=== PATIENT | male | born 1965 | race African-American/Black ===

== ENCOUNTER 2017-02-12 17:22 | Inpatient (IN) | payer OTHER, MEDICAID ==
[~2017-02-12] VITALS: Ht 175.3 cm; Wt 74.8 kg
[~2017-02-12 17:22] MED LIST: METF500T4 PO
[2017-02-12] MEDS ORDERED: LACTATED RINGERS 1,000 ML IV SCH ×2 (18:00)
[2017-02-12] MEDS ORDERED: VANCOMYCIN 1 G PREMIX 200 ML IV SCH ×2 (18:15→22:15)
[2017-02-12] MEDS ORDERED: METRONIDAZOLE 500 MG PREMIX 100 ML IV ONE (18:15)
[2017-02-12] MEDS ORDERED: AZTREONAM 2 GM in DEXT 5% WATER 100 ML IV SCH ×2 (18:15→19:45)
[2017-02-12 18:22] LABS: CHLORIDE 95 mEq/L (98-107)
[2017-02-12 18:23] LABS: INR 0.9; PROTHROMBIN TIME 9.9 sec (9.4-11.6)
[2017-02-12 18:25] LABS: CARBON DIOXIDE 27 mEq/L (21-32)
[2017-02-12 18:26] LABS: BASOPHILS % 0.3 % (0.0-2.0); EOSINOPHILS % 0.3 % (0.0-5.0); HEMATOCRIT. 37.4 % (42.0-52.0); HEMOGLOBIN. 12.3 g/dL (14.0-18.0); LYMPHOCYTES % 13.5 % (20.0-50.0); MEAN CORPUSCULAR HEMOGLOBIN 28.7 pg (28.0-32.0); MEAN CORPUSCULAR VOLUME 87.3 fL (80.0-94.0); MONOCYTES % 4.8 % (2.0-8.0); NEUTROPHILS % 81.1 % (40.0-76.0); PLATELET 362 x1000/uL (130-400); RED BLOOD CELL COUNT 4.29 mill/uL (4.7-6.1); RED CELL DISTRIBUTION WIDTH 14.4 % (11.6-14.6)
[2017-02-12 19:21] LABS: BG BASE EXCESS -2.5 mmol/L (-2.0-2.0); BG CARBOXYHEMOGLOBIN 1.3 % (0.5-1.5); BG DEOXYHEMOGLOBIN 3.8 % (0.0-5.0); BG FRACTION INSPIRED OXYGEN 21; BG HCO3 ACT 21.3 mmol/L (22.0-26.0); BG METHEMOGLOBIN 0.2 % (0.0-1.5); BG OXYGEN SATURATION 96.1 % (92.0-98.5); BG OXYHEMOGLOBIN 94.7 % (94.0-97.0); BG PCO2 33.7 mmHg (35.0-45.0); BG PH 7.419 (7.350-7.450); BG PO2 81.2 mmHg (75.0-100.0); BG SAMPLE SITE RIGHT BRACHIAL; BG TOTAL HEMOGLOBIN 12.1 g/dL (12.0-18.0); BG VENT MODE ROOM AIR
[2017-02-12] MEDS ORDERED: ONDANSETRON HCL 4MG/2ML VIAL IV ONE (19:45)
[2017-02-12] MEDS ORDERED: MORPHINE SULFATE 4 MG/ML CPJ (NOT FOR IM USE) IV ONE (19:45)
[2017-02-12] MEDS ORDERED: INSULIN DETEMIR UD 100 UNITS/ML SYR SUBCUT SCH (22:00)
[2017-02-12] MEDS ORDERED: CLONIDINE 0.1MG TABLET PO PRN (22:15)
[2017-02-12] MEDS ORDERED: ACETAMINOPHEN 325MG TABLET PO PRN (22:15)
[2017-02-12] MEDS ORDERED: DEXTROSE 50% WATER 50ML SYRINGE IV PRN (22:15)
[2017-02-12] MEDS ORDERED: ONDANSETRON HCL 4MG/2ML VIAL IV PRN (22:15)
[2017-02-12] MEDS ORDERED: MAGNESIUM/ALUMINUM HYDROXIDE/SIMETHICONE 30ML UDC PO PRN (22:15)
[2017-02-13] VITALS: BP 125/80
[2017-02-13] MEDS ORDERED: ASPI-1159 PO (01:24)
[2017-02-13] MEDS ORDERED: PLAVIX PO (01:24)
[2017-02-13] MEDS ORDERED: NOVOLOG SUBCUT (01:24)
[2017-02-13] MEDS ORDERED: LEVEMIR SUBCUT (01:24)
[2017-02-13] MEDS ORDERED: LEVOFLOXACIN 500MG PREMIX 100 ML IV SCH (02:00)
[2017-02-13 04:00] VITALS: BP 129/85
[2017-02-13] MEDS: HYDROCODONE/ACETAMINOPHEN 5/325MG TABLET PO PRN ×5 (05:52→21:00)
[2017-02-13] MEDS ORDERED: HYDROCODONE/ACETAMINOPHEN 5/325MG TABLET ONE (05:55)
[2017-02-13] MEDS: BLOOD SUGAR DIAGNOSTIC STRIP TEST SCH ×4 (06:33→21:43)
[2017-02-13] MEDS: SODIUM CHLORIDE 0.9% INJ 3ML FLUSH IVF SCH ×3 (06:35→20:58)
[2017-02-13] MEDS: INSULIN LISPRO 100 UNITS/ML SUBCUT SCH ×4 (06:36→21:50)
[2017-02-13 08:00] VITALS: BP 106/73
[2017-02-13] MEDS: VANCOMYCIN 1250MG in DEXTROSE 5% WATER 250ML IV SCH ×2 (08:18→20:58)
[2017-02-13] MEDS: ASPIRIN 81MG EC TABLET PO SCH (08:18)
[2017-02-13] MEDS: CLOPIDOGREL 75MG TABLET PO SCH (08:19)
[2017-02-13 11:41] VITALS: BP 101/71
[2017-02-13 15:55] VITALS: BP 94/61
[2017-02-13] MEDS ORDERED: CEFTRIAXONE 1 G PREMIX 50 ML IV SCH (16:30)
[2017-02-13 19:58] VITALS: BP 107/76
[2017-02-13] MEDS ORDERED: INSULIN DETEMIR UD 100 UNITS/ML SYR SUBCUT SCH (22:00)
[2017-02-13] MEDS ORDERED: INSULIN DETEMIR UD 100 UNITS/ML SYR SUBCUT NR (23:00)
[2017-02-14] VITALS: BP 124/87
[2017-02-14] MEDS: HYDROCODONE/ACETAMINOPHEN 5/325MG TABLET PO PRN ×5 (03:31→20:51)
[2017-02-14 04:00] VITALS: BP 127/88
[2017-02-14] MEDS: BLOOD SUGAR DIAGNOSTIC STRIP TEST SCH ×4 (06:36→21:00)
[2017-02-14] MEDS: SODIUM CHLORIDE 0.9% INJ 3ML FLUSH IVF SCH ×3 (06:46→22:34)
[2017-02-14] MEDS: INSULIN LISPRO 100 UNITS/ML SUBCUT SCH ×4 (06:47→22:34)
[2017-02-14 07:52] VITALS: BP 114/81
[2017-02-14 07:55] LABS: CARBON DIOXIDE 26 mEq/L (21-32); CHLORIDE 102 mEq/L (98-107)
[2017-02-14 07:57] LABS: BASOPHILS % 0.4 % (0.0-2.0); EOSINOPHILS % 0.9 % (0.0-5.0); HEMATOCRIT. 32.8 % (42.0-52.0); HEMOGLOBIN. 10.9 g/dL (14.0-18.0); LYMPHOCYTES % 19.1 % (20.0-50.0); MEAN CORPUSCULAR HEMOGLOBIN 28.3 pg (28.0-32.0); MEAN CORPUSCULAR VOLUME 85.5 fL (80.0-94.0); MEAN PLATELET VOLUME 8.2 fl (7.4-10.4); MONOCYTES % 8.3 % (2.0-8.0); NEUTROPHILS % 71.3 % (40.0-76.0); PLATELET 333 x1000/uL (130-400); RED BLOOD CELL COUNT 3.84 mill/uL (4.7-6.1); RED CELL DISTRIBUTION WIDTH 14.4 % (11.6-14.6)
[2017-02-14] MEDS: VANCOMYCIN 1250MG in DEXTROSE 5% WATER 250ML IV SCH (08:39)
[2017-02-14] MEDS: ASPIRIN 81MG EC TABLET PO SCH (08:39)
[2017-02-14] MEDS: CLOPIDOGREL 75MG TABLET PO SCH (08:39)
[2017-02-14 12:00] VITALS: BP 101/72
[2017-02-14 16:00] VITALS: BP 100/64
[2017-02-14] MEDS: CEFTRIAXONE 1 G PREMIX 50 ML IV SCH (16:30)
[2017-02-14] MEDS: VANCOMYCIN 1500MG in DEXTROSE 5% WATER 250ML IV SCH (20:06)
[2017-02-14 20:35] VITALS: BP 96/66
[2017-02-14] MEDS: INSULIN DETEMIR UD 100 UNITS/ML SYR SUBCUT SCH (22:34)
[2017-02-15 00:49] VITALS: BP 96/53
[2017-02-15] MEDS: HYDROCODONE/ACETAMINOPHEN 5/325MG TABLET PO PRN ×5 (01:26→19:50)
[2017-02-15] MEDS: SODIUM CHLORIDE 0.9% INJ 3ML FLUSH IVF SCH ×3 (01:31→21:54)
[2017-02-15] MEDS: VANCOMYCIN 1500MG in DEXTROSE 5% WATER 250ML IV SCH ×2 (01:31→08:22)
[2017-02-15 04:58] VITALS: BP 108/72
[2017-02-15] MEDS: BLOOD SUGAR DIAGNOSTIC STRIP TEST SCH ×4 (05:42→21:49)
[2017-02-15] MEDS: INSULIN LISPRO 100 UNITS/ML SUBCUT SCH ×4 (05:56→21:50)
[2017-02-15] MEDS: CLOPIDOGREL 75MG TABLET PO SCH (08:21)
[2017-02-15] MEDS: ASPIRIN 81MG EC TABLET PO SCH (08:21)
[2017-02-15 08:31] VITALS: BP 118/78
[2017-02-15] MEDS: CEFTRIAXONE 1 G PREMIX 50 ML IV SCH (15:39)
[2017-02-15] MEDS ORDERED: HYDROCODONE/ACETAMINOPHEN 5/325MG TABLET ONE (15:42)
[2017-02-15 17:23] VITALS: BP 109/74
[2017-02-15 20:00] VITALS: BP 138/91
[2017-02-15] MEDS: VANCOMYCIN 1 G PREMIX 200 ML IV SCH (21:52)
[2017-02-15] MEDS: INSULIN DETEMIR UD 100 UNITS/ML SYR SUBCUT SCH (21:57)
[2017-02-16] VITALS: BP 140/90
[2017-02-16] MEDS: HYDROCODONE/ACETAMINOPHEN 5/325MG TABLET PO PRN ×5 (00:34→21:21)
[2017-02-16 04:00] VITALS: BP 115/73
[2017-02-16] MEDS: VANCOMYCIN 1 G PREMIX 200 ML IV SCH ×3 (05:45→22:38)
[2017-02-16] MEDS: BLOOD SUGAR DIAGNOSTIC STRIP TEST SCH ×4 (06:19→20:28)
[2017-02-16] MEDS: SODIUM CHLORIDE 0.9% INJ 3ML FLUSH IVF SCH ×3 (06:19→22:38)
[2017-02-16] MEDS: INSULIN LISPRO 100 UNITS/ML SUBCUT SCH ×4 (06:20→21:23)
[2017-02-16 08:00] VITALS: BP 121/87
[2017-02-16] MEDS: CLOPIDOGREL 75MG TABLET PO SCH (08:51)
[2017-02-16] MEDS: ASPIRIN 81MG EC TABLET PO SCH (08:51)
[2017-02-16 12:00] VITALS: BP 116/77
[2017-02-16] MEDS: CEFTRIAXONE 1 G PREMIX 50 ML IV SCH (15:36)
[2017-02-16 16:00] VITALS: BP 117/77
[2017-02-16 20:00] VITALS: BP 93/61
[2017-02-16] MEDS: INSULIN DETEMIR UD 100 UNITS/ML SYR SUBCUT SCH (21:23)
[2017-02-17] VITALS: BP 112/71
[2017-02-17] MEDS: HYDROCODONE/ACETAMINOPHEN 5/325MG TABLET PO PRN ×5 (01:21→22:22)
[2017-02-17 04:00] VITALS: BP_SYST 132; BP_SYST 136; BP_DIAS 90; BP_DIAS 96
[2017-02-17 04:26] LABS: CARBON DIOXIDE 27 mEq/L (21-32); CHLORIDE 101 mEq/L (98-107); VANCOMYCIN TROUGH 24.9 ug/mL (5.0-10.0)
[2017-02-17 04:45] LABS: EOSINOPHILS % 2.1 % (0.0-5.0); HEMATOCRIT. 33.5 % (42.0-52.0); HEMOGLOBIN. 11.2 g/dL (14.0-18.0); LYMPHOCYTES % 29.9 % (20.0-50.0); MEAN CORPUSCULAR HEMOGLOBIN 28.7 pg (28.0-32.0); MEAN PLATELET VOLUME 7.6 fl (7.4-10.4); MONOCYTES % 10.1 % (2.0-8.0); NEUTROPHILS % 56.9 % (40.0-76.0); PLATELET 418 x1000/uL (130-400); RED CELL DISTRIBUTION WIDTH 14.3 % (11.6-14.6)
[2017-02-17] MEDS: SODIUM CHLORIDE 0.9% INJ 3ML FLUSH IVF SCH ×3 (05:09→21:50)
[2017-02-17] MEDS: VANCOMYCIN 1 G PREMIX 200 ML IV SCH ×2 (05:09→13:14)
[2017-02-17] MEDS: BLOOD SUGAR DIAGNOSTIC STRIP TEST SCH ×4 (05:35→21:44)
[2017-02-17] MEDS: INSULIN LISPRO 100 UNITS/ML SUBCUT SCH ×4 (05:39→21:50)
[2017-02-17 08:00] VITALS: BP 132/89
[2017-02-17] MEDS: CLOPIDOGREL 75MG TABLET PO SCH (09:43)
[2017-02-17] MEDS: ASPIRIN 81MG EC TABLET PO SCH (09:43)
[2017-02-17 12:00] VITALS: BP 133/90
[2017-02-17] MEDS: CEFTRIAXONE 1 G PREMIX 50 ML IV SCH (17:55)
[2017-02-17 20:00] VITALS: BP 141/91
[2017-02-17] MEDS: INSULIN DETEMIR UD 100 UNITS/ML SYR SUBCUT SCH (21:50)
[2017-02-18] VITALS: BP 118/71
[2017-02-18] MEDS: VANCOMYCIN 1500MG in DEXTROSE 5% WATER 250ML IV SCH ×2 (01:16→12:26)
[2017-02-18 04:00] VITALS: BP 125/61
[2017-02-18] MEDS: HYDROCODONE/ACETAMINOPHEN 5/325MG TABLET PO PRN ×3 (04:09→14:34)
[2017-02-18] MEDS: SODIUM CHLORIDE 0.9% INJ 3ML FLUSH IVF SCH ×2 (06:17→14:00)
[2017-02-18] MEDS: BLOOD SUGAR DIAGNOSTIC STRIP TEST SCH ×2 (07:10→12:26)
[2017-02-18] MEDS: INSULIN LISPRO 100 UNITS/ML SUBCUT SCH ×2 (07:40→12:26)
[2017-02-18] MEDS: CLOPIDOGREL 75MG TABLET PO SCH (08:52)
[2017-02-18] MEDS: ASPIRIN 81MG EC TABLET PO SCH (08:52)
[2017-02-18] MEDS ORDERED: IBUPROFEN 600MG TABLET PO PRN (09:00)
[2017-02-18 12:00] VITALS: BP 102/65
[2017-02-18 16:00] VITALS: BP 121/81
[2017-02-18 16:37] VITALS: BP 121/81
== END 2017-02-18 17:00 | disposition home or self-care (01) | DRG 872 ==
LOC: ER 17:22 → EDBEDREQTM 21:04 → EDBEDREQ 21:04 → EDBEDREQSVC 21:04 → 8WST 21:09 → EDBEDREQTM 21:14 → EDBEDREQ 21:14 → ENRESERV 21:29 → ER 22:27
PROVIDERS: ADMIT Internal Medicine; ATTEND Internal Medicine
DX: A41.9 Sepsis, unspecified organism (principal); E11.65 Type 2 diabetes mellitus with hyperglycemia; I10 Essential (primary) hypertension; L03.114 Cellulitis of left upper limb; E87.1 Hypo-osmolality and hyponatremia; L02.512 Cutaneous abscess of left hand; D64.9 Anemia, unspecified; I25.10 Atherosclerotic heart disease of native coronary artery without angina pectoris; Z95.5 Presence of coronary angioplasty implant and graft; Z89.411 Acquired absence of right great toe; Z72.0 Tobacco use; Z88.0 Allergy status to penicillin; Z83.3 Family history of diabetes mellitus; Z86.73 Personal history of transient ischemic attack (TIA), and cerebral infarction without residual deficits; Z71.6 Tobacco abuse counseling; Z89.422 Acquired absence of other left toe(s)
CPT/HCPCS: 36415; 36600; 71010; 73130; 80048; 80053; 80202; 82375; 82805; 82962; 83036; 83605; 83930; 85025; 85610; 87040; 93005; 96365; 96367; 96368; 96375; 99285; C1893; J0696; J1815; J1956; J2270; J2405; J3370; J3490; J7050; J7060; J7120

== ENCOUNTER 2017-06-16 11:27 | Emergency (ER) | payer OTHER, MEDICAID ==
[~2017-06-16] VITALS: Ht 175.3 cm; Wt 67.0 kg
[~2017-06-16 11:27] MED LIST changes: +ASPI-1159 PO; +PLAVIX PO
[2017-06-16 11:44] VITALS: BP 122/77
[2017-06-16] MEDS ORDERED: TETANUS, DIPHTHERIA, PERTUSSIS VAC/PF 0.5ML (>7YR OLD) IM ONE (16:15)
[2017-06-16] MEDS ORDERED: BACITRACIN ZINC OINT UDPKT TOP ONE (16:15)
== END 2017-06-16 17:32 | disposition home or self-care (01) ==
LOC: ER 13:04
DX: L02.611 Cutaneous abscess of right foot (principal); I10 Essential (primary) hypertension; E11.9 Type 2 diabetes mellitus without complications; Z23 Encounter for immunization; I25.2 Old myocardial infarction; Z86.73 Personal history of transient ischemic attack (TIA), and cerebral infarction without residual deficits; Z79.82 Long term (current) use of aspirin; F17.210 Nicotine dependence, cigarettes, uncomplicated; Z88.0 Allergy status to penicillin; Z89.429 Acquired absence of other toe(s), unspecified side
CPT/HCPCS: 10060; 82962; 90471; 90715; 99283

== ENCOUNTER 2017-12-28 04:00 | Inpatient (IN) | payer MEDICARE, MEDICAID ==
[~2017-12-28] VITALS: Ht 165.1 cm; Wt 66.2 kg
[2017-12-28] VITALS (14 sets, daily range): BP systolic 77–146; BP diastolic 43–123
[~2017-12-28 04:00] MED LIST changes: -METF500T4 PO; +METF500T6 PO
[2017-12-28] MEDS ORDERED: MORPHINE SULFATE 4 MG/ML CPJ (NOT FOR IM USE) IV STA (04:53)
[2017-12-28] MEDS ORDERED: ONDANSETRON HCL 4MG/2ML VIAL IV STA (04:53)
[2017-12-28] MEDS ORDERED: SODIUM CHLORIDE 0.9% 1000ML BAG (SEPSIS BOLUS) IV ONE (05:00)
[2017-12-28] MEDS ORDERED: METRONIDAZOLE 500 MG PREMIX 100 ML IV ONE (05:00)
[2017-12-28] MEDS ORDERED: LEVOFLOXACIN 750MG PREMIX 150 ML IV ONE (05:00)
[2017-12-28] MEDS ORDERED: VANCOMYCIN 1 G PREMIX 200 ML IV ONE (05:00)
[2017-12-28 05:33] LABS: BG BASE EXCESS -13.3 mmol/L (-2.0-2.0); BG CARBOXYHEMOGLOBIN 0.6 % (0.5-1.5); BG DEOXYHEMOGLOBIN 2.7 % (0.0-5.0); BG FRACTION INSPIRED OXYGEN 21; BG METHEMOGLOBIN 0.4 % (0.0-1.5); BG OXYGEN SATURATION 97.3 % (92.0-98.5); BG OXYHEMOGLOBIN 96.3 % (94.0-97.0); BG PCO2 22.9 mmHg (35.0-45.0); BG PH 7.301 (7.350-7.450); BG PO2 101.5 mmHg (75.0-100.0); BG SAMPLE SITE LEFT BRACHIAL; BG TOTAL HEMOGLOBIN 13.6 g/dL (12.0-18.0); BG VENT MODE ROOM AIR
[2017-12-28 05:36] LABS: HEMOGLOBIN. 14.7 g/dL (14.0-18.0); MEAN CORPUSCULAR HEMOGLOBIN 28.1 pg (28.0-32.0); MEAN CORPUSCULAR VOLUME 88.1 fL (80.0-94.0); MEAN PLATELET VOLUME 7.8 fl (7.4-10.4); PLATELET 583 x1000/uL (130-400); RED BLOOD CELL COUNT 5.22 mill/uL (4.7-6.1); RED CELL DISTRIBUTION WIDTH 14.6 % (11.6-14.6)
[2017-12-28 05:41] LABS: CHLORIDE 91 mEq/L (98-107)
[2017-12-28 05:42] LABS: PROTHROMBIN TIME 10.6 sec (9.4-11.6)
[2017-12-28 05:45] LABS: ETHANOL BLOOD < 10 mg/dL
[2017-12-28 06:10] LABS: BETA HYDROXYBUTYRATE 12.2 mMol/L (0.0-0.3)
[2017-12-28] MEDS ORDERED: SODIUM CHLORIDE 0.9% 1,000 ML IV SCH ×2 (06:10→08:16)
[2017-12-28 06:47] LABS: ATYPICAL LYMPHOCYTES 2; PLATELET ESTIMATE INCREASED
[2017-12-28] MEDS ORDERED: IOHEXOL-300 100 ML BOTTLE ONE (06:57)
[2017-12-28 07:38] LABS: CLARITY URINE CLEAR (CLEAR); COLOR URINE YELLOW (YELLOW); KETONES URINE 4+ (NEGATIVE); LEUKOCYTE ESTERASE URINE NEGATIVE (NEGATIVE); NITRITE URINE NEGATIVE (NEGATIVE); OCCULT BLOOD URINE TRACE (NEGATIVE); PROTEIN URINE TRACE (NEGATIVE); SPECIFIC GRAVITY URINE 1.022 (1.005-1.030); UROBILINOGEN URINE 0.2 E.U./dL (0.2-1.0)
[2017-12-28 08:23] LABS: *AMPHETAMINES SCREEN URINE NEGATIVE (NEGATIVE)
[2017-12-28 08:24] LABS: *BARBITURATES SCREEN URINE NEGATIVE (NEGATIVE); *BENZODIAZEPINES SCREEN URINE NEGATIVE (NEGATIVE); *COCAINE SCREEN URINE PRESUMTIVE POSITIVE (NEGATIVE); METHADONE URINE SCREEN NEGATIVE (NEGATIVE); OPIATES URINE SCREEN PRESUMTIVE POSITIVE (NEGATIVE); PHENCYCLIDINE URINE SCREEN NEGATIVE (NEGATIVE)
[2017-12-28 08:25] LABS: CANNABINOID URINE SCREEN NEGATIVE (NEGATIVE)
[2017-12-28] MEDS ORDERED: CLONIDINE 0.1MG TABLET PO PRN (08:30)
[2017-12-28] MEDS ORDERED: DOCUSATE SODIUM 100MG CAPSULE PO PRN (08:30)
[2017-12-28] MEDS ORDERED: IPRATROPIUM/ALBUTEROL 0.5-3(2.5)MG/3ML NEB INH PRN (08:30)
[2017-12-28] MEDS ORDERED: ONDANSETRON HCL 4MG/2ML VIAL IV PRN (08:30)
[2017-12-28] MEDS: HYDROCODONE/ACETAMINOPHEN 5/325MG TABLET PO PRN (09:06)
[2017-12-28] MEDS ORDERED: DEXTROSE 50% WATER 50ML SYRINGE IV PRN ×3 (09:15→15:00)
[2017-12-28] MEDS: BLOOD SUGAR DIAGNOSTIC STRIP TEST SCH ×11 (09:22→23:52)
[2017-12-28] MEDS ORDERED: AZITHROMYCIN 500 MG TABLET PO NR (09:30)
[2017-12-28] MEDS: INSULIN LISPRO 100 UNITS/ML SUBCUT SCH ×2 (11:33→13:00)
[2017-12-28] MEDS: AZTREONAM 2 GM in DEXT 5% WATER 100 ML IV SCH ×2 (11:57→21:56)
[2017-12-28] MEDS ORDERED: INSULIN REGULAR (DRIP) 100 UNITS in SODIUM CHLORIDE 0.9% 100 ML IV SCH ×2 (13:45→14:46)
[2017-12-28] MEDS: SODIUM CHLORIDE 0.45% 1,000 ML IV SCH ×3 (14:15→23:53)
[2017-12-28] MEDS: CLOPIDOGREL 75MG TABLET PO SCH (14:15)
[2017-12-28] MEDS: ASPIRIN 81MG TABLET PO SCH (14:15)
[2017-12-28] MEDS ORDERED: MORPHINE SULFATE 4 MG/ML CPJ (NOT FOR IM USE) IV PRN (14:30)
[2017-12-28] MEDS: MORPHINE SULFATE 4 MG/ML CPJ (NOT FOR IM USE) IV PRN ×2 (14:36→21:43)
[2017-12-28] MEDS: METRONIDAZOLE 500 MG PREMIX 100 ML IV SCH ×2 (14:37→21:56)
[2017-12-28 17:20] LABS: CHLORIDE 104 mEq/L (98-107)
[2017-12-28] MEDS: VANCOMYCIN 1 G PREMIX 200 ML IV SCH (18:05)
[2017-12-29] VITALS (19 sets, daily range): BP systolic 86–138; BP diastolic 53–83
[2017-12-29] MEDS: BLOOD SUGAR DIAGNOSTIC STRIP TEST SCH ×19 (00:33→20:22)
[2017-12-29] MEDS: HYDROCODONE/ACETAMINOPHEN 5/325MG TABLET PO PRN ×3 (00:38→18:48)
[2017-12-29 01:31] LABS: CHLORIDE 108 mEq/L (98-107)
[2017-12-29] MEDS: MORPHINE SULFATE 4 MG/ML CPJ (NOT FOR IM USE) IV PRN ×4 (01:48→22:02)
[2017-12-29] MEDS: SODIUM CHLORIDE 0.45% 1,000 ML IV SCH ×3 (05:02→20:53)
[2017-12-29] MEDS: METRONIDAZOLE 500 MG PREMIX 100 ML IV SCH ×3 (05:04→22:50)
[2017-12-29 05:41] LABS: CHLORIDE 106 mEq/L (98-107)
[2017-12-29 07:24] LABS: HEMATOCRIT. 33.8 % (42.0-52.0); HEMOGLOBIN. 11.3 g/dL (14.0-18.0); MEAN CORPUSCULAR HEMOGLOBIN 28.1 pg (28.0-32.0); MEAN CORPUSCULAR VOLUME 84.4 fL (80.0-94.0); MEAN PLATELET VOLUME 6.8 fl (7.4-10.4); PLATELET 407 x1000/uL (130-400); RED BLOOD CELL COUNT 4.01 mill/uL (4.7-6.1); RED CELL DISTRIBUTION WIDTH 13.9 % (11.6-14.6)
[2017-12-29 07:37] LABS: CHLORIDE 108 mEq/L (98-107)
[2017-12-29] MEDS: VANCOMYCIN 1 G PREMIX 200 ML IV SCH ×2 (07:53→20:52)
[2017-12-29 08:21] LABS: PLATELET ESTIMATE SLIGHTLY INCREASED
[2017-12-29] MEDS: CLOPIDOGREL 75MG TABLET PO SCH (09:22)
[2017-12-29] MEDS: ASPIRIN 81MG TABLET PO SCH (09:22)
[2017-12-29 12:09] LABS: CHLORIDE 104 mEq/L (98-107)
[2017-12-29] MEDS: AZTREONAM 2 GM in DEXT 5% WATER 100 ML IV SCH ×2 (12:57→23:40)
[2017-12-29] MEDS ORDERED: DEXTROSE 50% WATER 50ML SYRINGE IV PRN (13:45)
[2017-12-29 16:45] LABS: CHLORIDE 101 mEq/L (98-107)
[2017-12-29] MEDS: INSULIN LISPRO 100 UNITS/ML SUBCUT SCH ×2 (18:20→21:16)
[2017-12-29 20:19] LABS: CHLORIDE 100 mEq/L (98-107)
[2017-12-29] MEDS: INSULIN GLARGINE UD 100 UNITS/ML SYR SUBCUT SCH (21:18)
[2017-12-30] VITALS: BP 129/75
[2017-12-30] MEDS: HYDROCODONE/ACETAMINOPHEN 5/325MG TABLET PO PRN ×4 (00:12→18:28)
[2017-12-30] MEDS: SODIUM CHLORIDE 0.45% 1,000 ML IV SCH ×4 (00:45→18:17)
[2017-12-30 00:47] LABS: CHLORIDE 99 mEq/L (98-107)
[2017-12-30] MEDS: MORPHINE SULFATE 4 MG/ML CPJ (NOT FOR IM USE) IV PRN ×5 (01:48→21:29)
[2017-12-30 04:00] VITALS: BP 145/77
[2017-12-30] MEDS: METRONIDAZOLE 500 MG PREMIX 100 ML IV SCH ×3 (05:23→21:08)
[2017-12-30 05:48] LABS: BASOPHILS % 0.1 % (0.0-2.0); EOSINOPHILS % 0.2 % (0.0-5.0); HEMATOCRIT. 36.6 % (42.0-52.0); MEAN PLATELET VOLUME 7.3 fl (7.4-10.4); MONOCYTES % 7.6 % (2.0-8.0); NEUTROPHILS % 82.1 % (40.0-76.0); PLATELET 418 x1000/uL (130-400); RED CELL DISTRIBUTION WIDTH 13.9 % (11.6-14.6)
[2017-12-30 06:19] LABS: CHLORIDE 98 mEq/L (98-107)
[2017-12-30 06:31] LABS: VANCOMYCIN TROUGH 18.7 ug/mL (5.0-10.0)
[2017-12-30] MEDS: VANCOMYCIN 1 G PREMIX 200 ML IV SCH ×2 (06:50→18:18)
[2017-12-30] MEDS: BLOOD SUGAR DIAGNOSTIC STRIP TEST SCH ×4 (06:57→21:07)
[2017-12-30 08:00] VITALS: BP 124/74
[2017-12-30] MEDS ORDERED: BACITRACIN 50,000 UNITS/VIAL ONE (08:07)
[2017-12-30] MEDS ORDERED: NORMAL SALINE 0.9% 10 ML SYR ONE (08:07)
[2017-12-30] MEDS: CLOPIDOGREL 75MG TABLET PO SCH (08:49)
[2017-12-30] MEDS: ASPIRIN 81MG TABLET PO SCH (08:49)
[2017-12-30] MEDS: INSULIN LISPRO 100 UNITS/ML SUBCUT SCH ×4 (10:05→21:21)
[2017-12-30 12:00] VITALS: BP 106/59
[2017-12-30] MEDS: AZTREONAM 2 GM in DEXT 5% WATER 100 ML IV SCH (12:00)
[2017-12-30 13:04] LABS: CHLORIDE 101 mEq/L (98-107)
[2017-12-30 16:00] VITALS: BP 102/56
[2017-12-30 20:00] VITALS: BP 131/88
[2017-12-30] MEDS: INSULIN GLARGINE UD 100 UNITS/ML SYR SUBCUT SCH (21:27)
[2017-12-31] VITALS: BP 124/74
[2017-12-31] MEDS: HYDROCODONE/ACETAMINOPHEN 5/325MG TABLET PO PRN (00:38)
[2017-12-31] MEDS: AZTREONAM 2 GM in DEXT 5% WATER 100 ML IV SCH ×2 (00:51→12:03)
[2017-12-31] MEDS: MORPHINE SULFATE 4 MG/ML CPJ (NOT FOR IM USE) IV PRN ×5 (01:26→21:00)
[2017-12-31] MEDS: SODIUM CHLORIDE 0.45% 1,000 ML IV SCH ×5 (03:52→21:31)
[2017-12-31 04:00] VITALS: BP 128/68
[2017-12-31 04:15] LABS: HIV SCREEN 4G Non Reactive (Non Reactive)
[2017-12-31] MEDS: METRONIDAZOLE 500 MG PREMIX 100 ML IV SCH (05:29)
[2017-12-31] MEDS: BLOOD SUGAR DIAGNOSTIC STRIP TEST SCH ×4 (06:13→21:27)
[2017-12-31] MEDS: INSULIN LISPRO 100 UNITS/ML SUBCUT SCH ×4 (06:25→21:24)
[2017-12-31] MEDS: VANCOMYCIN 1 G PREMIX 200 ML IV SCH ×2 (06:26→17:55)
[2017-12-31 07:19] LABS: BASOPHILS % 0.2 % (0.0-2.0); EOSINOPHILS % 0.5 % (0.0-5.0); HEMATOCRIT. 33.6 % (42.0-52.0); HEMOGLOBIN. 11.3 g/dL (14.0-18.0); LYMPHOCYTES % 13.1 % (20.0-50.0); MEAN CORPUSCULAR HEMOGLOBIN 28.1 pg (28.0-32.0); MEAN CORPUSCULAR VOLUME 83.6 fL (80.0-94.0); MEAN PLATELET VOLUME 7.1 fl (7.4-10.4); MONOCYTES % 7.4 % (2.0-8.0); NEUTROPHILS % 78.8 % (40.0-76.0); PLATELET 403 x1000/uL (130-400); RED BLOOD CELL COUNT 4.02 mill/uL (4.7-6.1)
[2017-12-31 08:00] VITALS: BP 116/66
[2017-12-31 08:18] LABS: CHLORIDE 97 mEq/L (98-107)
[2017-12-31] MEDS: ASPIRIN 81MG TABLET PO SCH (08:25)
[2017-12-31] MEDS: CLOPIDOGREL 75MG TABLET PO SCH (08:25)
[2017-12-31 08:39] LABS: PHOSPHORUS 1.8 mg/dL (2.5-4.9)
[2017-12-31] MEDS: POTASSIUM CHLORIDE 20MEQ/PACKET PO SCH (10:21)
[2017-12-31] MEDS: CHLORPROMAZINE HCL 10 MG TABLET PO PRN ×3 (10:40→20:51)
[2017-12-31 12:00] VITALS: BP 121/70
[2017-12-31 16:00] VITALS: BP 147/94
[2017-12-31] MEDS: METRONIDAZOLE 500MG TABLET PO SCH ×2 (16:15→21:24)
[2017-12-31 20:00] VITALS: BP 110/66
[2017-12-31] MEDS: ONDANSETRON 4MG ODT PO PRN (20:52)
[2017-12-31] MEDS ORDERED: POTASSIUM CHLORIDE 20MEQ TABLET SR PO NR (21:00)
[2017-12-31] MEDS: INSULIN GLARGINE UD 100 UNITS/ML SYR SUBCUT SCH (21:32)
[2018-01-01] MEDS: AZTREONAM 2 GM in DEXT 5% WATER 100 ML IV SCH ×3 (00:13→23:35)
[2018-01-01 00:23] VITALS: BP 109/57
[2018-01-01] MEDS: MORPHINE SULFATE 4 MG/ML CPJ (NOT FOR IM USE) IV PRN ×4 (01:24→21:02)
[2018-01-01] MEDS: SODIUM CHLORIDE 0.45% 1,000 ML IV SCH ×5 (01:25→23:35)
[2018-01-01] MEDS: ONDANSETRON 4MG ODT PO PRN (01:25)
[2018-01-01 04:29] VITALS: BP 115/73
[2018-01-01] MEDS: METRONIDAZOLE 500MG TABLET PO SCH ×3 (05:33→21:02)
[2018-01-01] MEDS: VANCOMYCIN 1 G PREMIX 200 ML IV SCH (05:38)
[2018-01-01] MEDS: CHLORPROMAZINE HCL 10 MG TABLET PO PRN (05:38)
[2018-01-01] MEDS: BLOOD SUGAR DIAGNOSTIC STRIP TEST SCH ×4 (05:55→21:09)
[2018-01-01 08:00] VITALS: BP 116/69
[2018-01-01] MEDS: ASPIRIN 81MG TABLET PO SCH (09:00)
[2018-01-01] MEDS: CLOPIDOGREL 75MG TABLET PO SCH (09:00)
[2018-01-01] MEDS: INSULIN LISPRO 100 UNITS/ML SUBCUT SCH ×4 (09:28→21:42)
[2018-01-01 09:53] LABS: BASOPHILS % 0.2 % (0.0-2.0); HEMATOCRIT. 31.4 % (42.0-52.0); HEMOGLOBIN. 10.5 g/dL (14.0-18.0); LYMPHOCYTES % 13.6 % (20.0-50.0); MEAN CORPUSCULAR HEMOGLOBIN 27.8 pg (28.0-32.0); MEAN CORPUSCULAR VOLUME 83.5 fL (80.0-94.0); MEAN PLATELET VOLUME 7.2 fl (7.4-10.4); MONOCYTES % 7.2 % (2.0-8.0); PLATELET 331 x1000/uL (130-400); RED BLOOD CELL COUNT 3.76 mill/uL (4.7-6.1)
[2018-01-01] MEDS: CHLORPROMAZINE HCL 10 MG TABLET PO SCH ×3 (11:54→23:35)
[2018-01-01] MEDS: POTASSIUM CHLORIDE 20MEQ/PACKET PO SCH (11:55)
[2018-01-01 12:00] VITALS: BP 118/68
[2018-01-01 12:12] LABS: CHLORIDE 102 mEq/L (98-107)
[2018-01-01] MEDS ORDERED: BACITRACIN ZINC 15GM TUBE TOP ONE (12:26)
[2018-01-01] MEDS ORDERED: NORMAL SALINE 0.9% 10 ML SYR ONE (12:26)
[2018-01-01] MEDS ORDERED: BACITRACIN 50,000 UNITS/VIAL ONE (12:26)
[2018-01-01] MEDS ORDERED: FENTANYL CITRATE/PF 50MCG/ML 2ML VIAL ONE ×2 (12:58→13:44)
[2018-01-01] MEDS ORDERED: ROCURONIUM BROMIDE 10MG/ML VIAL 5ML IV ONE (12:58)
[2018-01-01] MEDS ORDERED: MIDAZOLAM HCL 2 MG/2 ML VIAL ONE (12:59)
[2018-01-01] MEDS ORDERED: NEOSTIGMINE METHYLSULFATE 1MG/ML 10 ML VIAL ONE (12:59)
[2018-01-01] MEDS ORDERED: METOCLOPRAMIDE HCL 10MG/2ML VIAL ONE (12:59)
[2018-01-01] MEDS ORDERED: PHENYLEPHRINE HCL 10 MG/ML 1ML (IV VIAL) IV ONE (12:59)
[2018-01-01] MEDS ORDERED: EPHEDRINE SULFATE 50MG/ML VIAL ONE (12:59)
[2018-01-01] MEDS ORDERED: GLYCOPYRROLATE 0.2 MG/ML 2ML VIAL ONE (12:59)
[2018-01-01] MEDS ORDERED: SODIUM CHLORIDE 0.9% 10ML VIAL ONE (12:59)
[2018-01-01] MEDS ORDERED: SUCCINYLCHOLINE CHLORIDE 200MG/10ML VIAL IV ONE (12:59)
[2018-01-01] MEDS ORDERED: DEXAMETHASONE 4MG/ML 1ML VIAL ONE (12:59)
[2018-01-01] MEDS ORDERED: PROPOFOL 200MG/20ML VIAL IV ONE (12:59)
[2018-01-01] MEDS ORDERED: LIDOCAINE HCL/PF 1% 10 MG/ML 5ML VIAL ONE (12:59)
[2018-01-01] MEDS ORDERED: ONDANSETRON HCL 4MG/2ML VIAL ONE (12:59)
[2018-01-01] MEDS ORDERED: LIDOCAINE HCL/EPINEPHRINE 1%-EPI 1:100,000 20 ML VIAL ONE (13:15)
[2018-01-01] MEDS ORDERED: ALBUMIN HUMAN 12.5G/250ML (5%) IV ONE (13:35)
[2018-01-01] MEDS ORDERED: SODIUM CHLORIDE 0.9% 1,000 ML IV ONE (13:35)
[2018-01-01] MEDS ORDERED: MEPERIDINE HCL/PF 25MG/ML CPJ IV PRN (13:45)
[2018-01-01] MEDS ORDERED: MORPHINE SULFATE 4 MG/ML CPJ (NOT FOR IM USE) IV PRN (13:45)
[2018-01-01] MEDS ORDERED: ONDANSETRON HCL 4MG/2ML VIAL IV PRN (13:45)
[2018-01-01] MEDS: HYDROMORPHONE HCL/PF 2MG/ML CPJ IV PRN ×3 (14:10→15:00)
[2018-01-01 16:00] VITALS: BP 134/81
[2018-01-01] MEDS: VANCOMYCIN 1500MG in DEXTROSE 5% WATER 250ML IV SCH (17:34)
[2018-01-01 20:00] VITALS: BP 106/67
[2018-01-01] MEDS: INSULIN GLARGINE UD 100 UNITS/ML SYR SUBCUT SCH (21:43)
[2018-01-02 00:28] VITALS: BP 98/68
[2018-01-02] MEDS: ONDANSETRON 4MG ODT PO PRN (00:50)
[2018-01-02] MEDS: MORPHINE SULFATE 4 MG/ML CPJ (NOT FOR IM USE) IV PRN ×2 (01:02→09:20)
[2018-01-02] MEDS: LORAZEPAM 2MG/ML CPJ IV PRN (02:59)
[2018-01-02 04:00] VITALS: BP 96/65
[2018-01-02] MEDS: SODIUM CHLORIDE 0.45% 1,000 ML IV SCH ×5 (05:39→23:53)
[2018-01-02] MEDS: VANCOMYCIN 1500MG in DEXTROSE 5% WATER 250ML IV SCH ×2 (05:39→17:00)
[2018-01-02] MEDS: METRONIDAZOLE 500MG TABLET PO SCH (05:40)
[2018-01-02] MEDS: CHLORPROMAZINE HCL 10 MG TABLET PO SCH ×4 (05:40→23:57)
[2018-01-02] MEDS: BLOOD SUGAR DIAGNOSTIC STRIP TEST SCH ×4 (06:08→21:00)
[2018-01-02] MEDS: INSULIN LISPRO 100 UNITS/ML SUBCUT SCH ×4 (06:20→21:12)
[2018-01-02 07:25] LABS: BASOPHILS % 0.5 % (0.0-2.0); EOSINOPHILS % 1.6 % (0.0-5.0); HEMATOCRIT. 31.3 % (42.0-52.0); HEMOGLOBIN. 10.3 g/dL (14.0-18.0); LYMPHOCYTES % 16.4 % (20.0-50.0); MEAN CORPUSCULAR HEMOGLOBIN 27.6 pg (28.0-32.0); MEAN CORPUSCULAR VOLUME 83.9 fL (80.0-94.0); MEAN PLATELET VOLUME 7.2 fl (7.4-10.4); MONOCYTES % 7.5 % (2.0-8.0); PLATELET 346 x1000/uL (130-400); RED BLOOD CELL COUNT 3.74 mill/uL (4.7-6.1); RED CELL DISTRIBUTION WIDTH 14.2 % (11.6-14.6)
[2018-01-02 08:01] VITALS: BP 102/68
[2018-01-02 08:47] LABS: CHLORIDE 99 mEq/L (98-107)
[2018-01-02 08:59] LABS: PHOSPHORUS 2.5 mg/dL (2.5-4.9)
[2018-01-02] MEDS: ASPIRIN 81MG TABLET PO SCH (09:19)
[2018-01-02] MEDS: CLOPIDOGREL 75MG TABLET PO SCH (09:19)
[2018-01-02] MEDS: POTASSIUM CHLORIDE 20MEQ/PACKET PO SCH (09:19)
[2018-01-02 11:56] VITALS: BP 111/67
[2018-01-02] MEDS: AZTREONAM 2 GM in DEXT 5% WATER 100 ML IV SCH (12:05)
[2018-01-02 15:58] VITALS: BP 103/69
[2018-01-02 20:00] VITALS: BP 103/63
[2018-01-02] MEDS: ACETAMINOPHEN 325MG TABLET PO PRN (21:23)
[2018-01-02] MEDS: INSULIN GLARGINE UD 100 UNITS/ML SYR SUBCUT SCH (22:13)
[2018-01-02] MEDS ORDERED: MAGNESIUM/ALUMINUM HYDROXIDE/SIMETHICONE 30ML UDC PO PRN (23:45)
[2018-01-03] VITALS: BP 127/77
[2018-01-03] MEDS: LORAZEPAM 2MG/ML CPJ IV PRN ×2 (00:51→23:31)
[2018-01-03 04:00] VITALS: BP 130/76
[2018-01-03] MEDS: SODIUM CHLORIDE 0.45% 1,000 ML IV SCH ×3 (05:00→16:24)
[2018-01-03] MEDS: CHLORPROMAZINE HCL 10 MG TABLET PO SCH ×5 (05:41→23:31)
[2018-01-03] MEDS: VANCOMYCIN 1500MG in DEXTROSE 5% WATER 250ML IV SCH ×2 (05:47→18:08)
[2018-01-03] MEDS: ACETAMINOPHEN 325MG TABLET PO PRN (05:51)
[2018-01-03 06:45] LABS: BASOPHILS % 0.5 % (0.0-2.0); EOSINOPHILS % 1.8 % (0.0-5.0); HEMATOCRIT. 31.8 % (42.0-52.0); HEMOGLOBIN. 10.5 g/dL (14.0-18.0); LYMPHOCYTES % 16.4 % (20.0-50.0); MEAN CORPUSCULAR HEMOGLOBIN 27.9 pg (28.0-32.0); MEAN CORPUSCULAR VOLUME 84.3 fL (80.0-94.0); MEAN PLATELET VOLUME 7.2 fl (7.4-10.4); MONOCYTES % 9.2 % (2.0-8.0); NEUTROPHILS % 72.1 % (40.0-76.0); PLATELET 362 x1000/uL (130-400); RED BLOOD CELL COUNT 3.77 mill/uL (4.7-6.1)
[2018-01-03] MEDS: BLOOD SUGAR DIAGNOSTIC STRIP TEST SCH ×4 (06:45→21:00)
[2018-01-03 07:26] LABS: CHLORIDE 100 mEq/L (98-107)
[2018-01-03 07:33] LABS: PHOSPHORUS 2.4 mg/dL (2.5-4.9)
[2018-01-03 08:00] VITALS: BP 146/91
[2018-01-03] MEDS: CLOPIDOGREL 75MG TABLET PO SCH (09:11)
[2018-01-03] MEDS: POTASSIUM CHLORIDE 20MEQ/PACKET PO SCH (09:11)
[2018-01-03] MEDS: ASPIRIN 81MG TABLET PO SCH (09:11)
[2018-01-03] MEDS: INSULIN LISPRO 100 UNITS/ML SUBCUT SCH ×4 (09:13→22:44)
[2018-01-03 12:00] VITALS: BP 112/69
[2018-01-03 16:00] VITALS: BP 117/83
[2018-01-03 20:00] VITALS: BP 118/64
[2018-01-03] MEDS: INSULIN GLARGINE UD 100 UNITS/ML SYR SUBCUT SCH (23:21)
[2018-01-04] VITALS: BP 125/83
[2018-01-04 04:00] VITALS: BP 136/90
[2018-01-04 04:40] LABS: CHLORIDE 100 mEq/L (98-107)
[2018-01-04 04:49] LABS: VANCOMYCIN TROUGH 24.8 ug/mL (5.0-10.0)
[2018-01-04] MEDS: VANCOMYCIN 1500MG in DEXTROSE 5% WATER 250ML IV SCH (05:04)
[2018-01-04 05:54] LABS: BASOPHILS % 0.5 % (0.0-2.0); EOSINOPHILS % 1.4 % (0.0-5.0); HEMATOCRIT. 32.2 % (42.0-52.0); HEMOGLOBIN. 10.7 g/dL (14.0-18.0); LYMPHOCYTES % 17.5 % (20.0-50.0); MEAN CORPUSCULAR HEMOGLOBIN 27.9 pg (28.0-32.0); MEAN CORPUSCULAR VOLUME 83.8 fL (80.0-94.0); MEAN PLATELET VOLUME 7.1 fl (7.4-10.4); MONOCYTES % 10.4 % (2.0-8.0); NEUTROPHILS % 70.2 % (40.0-76.0); PLATELET 397 x1000/uL (130-400); RED BLOOD CELL COUNT 3.85 mill/uL (4.7-6.1); RED CELL DISTRIBUTION WIDTH 14.1 % (11.6-14.6)
[2018-01-04] MEDS: CHLORPROMAZINE HCL 10 MG TABLET PO SCH ×3 (06:15→18:43)
[2018-01-04] MEDS: BLOOD SUGAR DIAGNOSTIC STRIP TEST SCH ×4 (06:51→21:16)
[2018-01-04] MEDS: INSULIN LISPRO 100 UNITS/ML SUBCUT SCH ×4 (06:51→21:14)
[2018-01-04 08:00] VITALS: BP 152/102
[2018-01-04] MEDS ORDERED: LIDOCAINE HCL/EPINEPHRINE 1%-EPI 1:100,000 50 ML VIAL INFIL ONE (08:30)
[2018-01-04 12:00] VITALS: BP 127/77
[2018-01-04] MEDS: ASPIRIN 81MG TABLET PO SCH (12:13)
[2018-01-04] MEDS: POTASSIUM CHLORIDE 20MEQ/PACKET PO SCH (12:13)
[2018-01-04] MEDS: CLOPIDOGREL 75MG TABLET PO SCH (12:13)
[2018-01-04] MEDS: SODIUM CHLORIDE 0.45% 1,000 ML IV SCH (15:53)
[2018-01-04 16:00] VITALS: BP 144/95
[2018-01-04 20:00] VITALS: BP 115/66
[2018-01-04] MEDS: HYDROCODONE/ACETAMINOPHEN 5/325MG TABLET PO PRN (20:13)
[2018-01-04] MEDS: VANCOMYCIN 1250MG in DEXTROSE 5% WATER 250ML IV SCH (20:14)
[2018-01-04] MEDS: INSULIN GLARGINE UD 100 UNITS/ML SYR SUBCUT SCH (21:16)
[2018-01-05] VITALS: BP 124/87
[2018-01-05] MEDS: HYDROCODONE/ACETAMINOPHEN 5/325MG TABLET PO PRN ×5 (00:03→20:34)
[2018-01-05] MEDS: CHLORPROMAZINE HCL 10 MG TABLET PO SCH ×4 (00:04→17:37)
[2018-01-05] MEDS: SODIUM CHLORIDE 0.45% 1,000 ML IV SCH ×3 (00:05→06:02)
[2018-01-05] MEDS ORDERED: LORAZEPAM 2MG/ML CPJ IV PRN (00:45)
[2018-01-05 04:00] VITALS: BP 121/80
[2018-01-05] MEDS: BLOOD SUGAR DIAGNOSTIC STRIP TEST SCH ×4 (06:21→21:36)
[2018-01-05 06:42] LABS: BASOPHILS % 0.7 % (0.0-2.0); EOSINOPHILS % 1.9 % (0.0-5.0); HEMATOCRIT. 29.4 % (42.0-52.0); HEMOGLOBIN. 9.9 g/dL (14.0-18.0); LYMPHOCYTES % 24.9 % (20.0-50.0); MEAN CORPUSCULAR HEMOGLOBIN 28.3 pg (28.0-32.0); MEAN PLATELET VOLUME 6.9 fl (7.4-10.4); MONOCYTES % 12.8 % (2.0-8.0); NEUTROPHILS % 59.7 % (40.0-76.0); PLATELET 430 x1000/uL (130-400); RED CELL DISTRIBUTION WIDTH 13.8 % (11.6-14.6)
[2018-01-05 07:10] LABS: CHLORIDE 101 mEq/L (98-107)
[2018-01-05 08:00] VITALS: BP 121/85
[2018-01-05] MEDS: ASPIRIN 81MG TABLET PO SCH (08:26)
[2018-01-05] MEDS: CLOPIDOGREL 75MG TABLET PO SCH (08:26)
[2018-01-05] MEDS: POTASSIUM CHLORIDE 20MEQ/PACKET PO SCH (08:26)
[2018-01-05] MEDS: VANCOMYCIN 1250MG in DEXTROSE 5% WATER 250ML IV SCH ×2 (08:27→21:30)
[2018-01-05] MEDS: INSULIN LISPRO 100 UNITS/ML SUBCUT SCH ×4 (08:36→21:52)
[2018-01-05 12:00] VITALS: BP 112/73
[2018-01-05 16:00] VITALS: BP 116/76
[2018-01-05] MEDS ORDERED: LIDOCAINE HCL/EPINEPHRINE 1%-EPI 1:100,000 50 ML VIAL INFIL NR (17:00)
[2018-01-05 20:00] VITALS: BP 97/61
[2018-01-05] MEDS: INSULIN GLARGINE UD 100 UNITS/ML SYR SUBCUT SCH (21:33)
[2018-01-06] VITALS (7 sets, daily range): BP systolic 102–128; BP diastolic 62–87
[2018-01-06] MEDS: CHLORPROMAZINE HCL 10 MG TABLET PO SCH ×4 (00:20→18:10)
[2018-01-06] MEDS: HYDROCODONE/ACETAMINOPHEN 5/325MG TABLET PO PRN ×3 (00:21→09:06)
[2018-01-06 06:39] LABS: BASOPHILS % 0.7 % (0.0-2.0); EOSINOPHILS % 1.8 % (0.0-5.0); HEMATOCRIT. 31.1 % (42.0-52.0); HEMOGLOBIN. 10.4 g/dL (14.0-18.0); LYMPHOCYTES % 26.1 % (20.0-50.0); MEAN CORPUSCULAR HEMOGLOBIN 28.1 pg (28.0-32.0); MEAN CORPUSCULAR VOLUME 83.8 fL (80.0-94.0); MEAN PLATELET VOLUME 6.8 fl (7.4-10.4); MONOCYTES % 12.1 % (2.0-8.0); NEUTROPHILS % 59.3 % (40.0-76.0); PLATELET 496 x1000/uL (130-400); RED BLOOD CELL COUNT 3.71 mill/uL (4.7-6.1); RED CELL DISTRIBUTION WIDTH 14.3 % (11.6-14.6)
[2018-01-06] MEDS: BLOOD SUGAR DIAGNOSTIC STRIP TEST SCH ×4 (07:20→21:00)
[2018-01-06] MEDS: VANCOMYCIN 1250MG in DEXTROSE 5% WATER 250ML IV SCH ×2 (08:13→22:17)
[2018-01-06] MEDS: ASPIRIN 81MG TABLET PO SCH (08:13)
[2018-01-06] MEDS: POTASSIUM CHLORIDE 20MEQ/PACKET PO SCH (08:14)
[2018-01-06] MEDS: CLOPIDOGREL 75MG TABLET PO SCH (08:14)
[2018-01-06] MEDS: INSULIN LISPRO 100 UNITS/ML SUBCUT SCH ×4 (08:20→22:28)
[2018-01-06 08:27] LABS: CHLORIDE 98 mEq/L (98-107)
[2018-01-06] MEDS: MORPHINE SULFATE 4 MG/ML CPJ (NOT FOR IM USE) IV PRN ×3 (14:00→22:18)
[2018-01-06] MEDS ORDERED: CHLO10TA9 PO (14:13)
[2018-01-06] MEDS ORDERED: LANTUSUD SUBCUT (14:13)
[2018-01-06] MEDS ORDERED: ASPI-1160 PO (14:13)
[2018-01-06] MEDS ORDERED: INSLIS SUBCUT (14:13)
[2018-01-06] MEDS: INSULIN GLARGINE UD 100 UNITS/ML SYR SUBCUT SCH (22:29)
[2018-01-07] VITALS: BP 116/75
[2018-01-07] MEDS: CHLORPROMAZINE HCL 10 MG TABLET PO SCH ×3 (00:54→13:13)
[2018-01-07] MEDS: MORPHINE SULFATE 4 MG/ML CPJ (NOT FOR IM USE) IV PRN ×2 (02:26→06:34)
[2018-01-07 04:00] VITALS: BP 99/62
[2018-01-07] MEDS: BLOOD SUGAR DIAGNOSTIC STRIP TEST SCH ×2 (07:00→13:19)
[2018-01-07] MEDS: INSULIN LISPRO 100 UNITS/ML SUBCUT SCH ×2 (07:57→13:19)
[2018-01-07 08:00] VITALS: BP 101/61
[2018-01-07] MEDS: CLOPIDOGREL 75MG TABLET PO SCH (09:52)
[2018-01-07] MEDS: VANCOMYCIN 1250MG in DEXTROSE 5% WATER 250ML IV SCH (09:53)
[2018-01-07] MEDS: POTASSIUM CHLORIDE 20MEQ/PACKET PO SCH (09:53)
[2018-01-07] MEDS: ASPIRIN 81MG TABLET PO SCH (09:53)
[2018-01-07] MEDS: HYDROCODONE/ACETAMINOPHEN 5/325MG TABLET PO PRN (10:30)
[2018-01-07 10:55] VITALS: BP 101/61
[2018-01-07 12:00] VITALS: BP 107/64
== END 2018-01-07 15:35 | disposition home health service (06) | DRG 853 ==
LOC: ER 04:37 → 5EST 06:14 → EDBEDREQSVC 06:15 → EDBEDREQTM 06:15 → EDBEDREQ 06:15 → ENRESERV 07:01 → CANRESERV 07:01 → ENRESERV 07:23 → 5EST 09:41 → CVICU 14:01 → 5WST 12-29 18:25 → UNDODISIN 12-31 13:55 → 6EST 01-02 18:32
PROVIDERS: ADMIT Internal Medicine; ATTEND Internal Medicine
PROC: 0V950ZZ Drainage of Scrotum, Open Approach (ICD-10-PCS; principal; 2018-01-01 12:30)
PROC: 0J9F0ZZ Drainage of Left Upper Arm Subcutaneous Tissue and Fascia, Open Approach (ICD-10-PCS; 2018-01-04)
PROC: 0H9CXZZ Drainage of Left Upper Arm Skin, External Approach (ICD-10-PCS; 2018-01-06)
DX: A41.9 Sepsis, unspecified organism (principal); E11.10 Type 2 diabetes mellitus with ketoacidosis without coma; L02.214 Cutaneous abscess of groin; F17.200 Nicotine dependence, unspecified, uncomplicated; N45.3 Epididymo-orchitis; I10 Essential (primary) hypertension; J45.909 Unspecified asthma, uncomplicated; F19.10 Other psychoactive substance abuse, uncomplicated; L04.2 Acute lymphadenitis of upper limb; N32.89 Other specified disorders of bladder; R31.9 Hematuria, unspecified; N40.0 Benign prostatic hyperplasia without lower urinary tract symptoms; F14.90 Cocaine use, unspecified, uncomplicated; Z86.73 Personal history of transient ischemic attack (TIA), and cerebral infarction without residual deficits; Z88.0 Allergy status to penicillin; Z91.19 Patient's noncompliance with other medical treatment and regimen; I25.2 Old myocardial infarction; Z93.3 Colostomy status; Z95.5 Presence of coronary angioplasty implant and graft; Z79.82 Long term (current) use of aspirin; Z79.02 Long term (current) use of antithrombotics/antiplatelets; Z89.422 Acquired absence of other left toe(s)
CPT/HCPCS: 36415; 36600; 71045; 74177; 76870; 76881; 80048; 80053; 80061; 80202; 80305; 81003; 82010; 82375; 82805; 82962; 83036; 83605; 83690; 83735; 84100; 84145; 84153; 84443; 84484; 85025; 85610; 86850; 86900; 87040; 87070; 87075; 87077; 87086; 87186; 87205; 93005; 93976; 94640; 96365; 96367; 96375; 99291; A4216; C1893; G0482; J0330; J1100; J1170; J1815; J1956; J2060; J2175; J2250; J2270; J2370; J2405; J2704; J2710; J2765; J3010; J3370; J3490; J7030; J7040; J7050; J7060; J7620; P9041; Q0161; Q0162; Q9967; A4315

== ENCOUNTER 2018-04-20 04:14 | Inpatient (IN) | payer MEDICARE, MEDICAID ==
[~2018-04-20] VITALS: Ht 175.3 cm; Wt 94.8 kg
[~2018-04-20 04:14] MED LIST changes: +ASPI-1160 PO; +CHLO10TA9 PO; +INSLIS SUBCUT; +LANTUSUD SUBCUT; -METF500T6 PO
[2018-04-20] MEDS ORDERED: MORPHINE SULFATE 4 MG/ML CPJ (NOT FOR IM USE) IV STA (05:07)
[2018-04-20] MEDS ORDERED: ONDANSETRON HCL 4MG/2ML INJ IV STA (05:07)
[2018-04-20] MEDS ORDERED: FUROSEMIDE 40MG/4ML VIAL IV ONE (05:15)
[2018-04-20 05:55] LABS: BASOPHILS % 1.1 % (0.0-2.0); EOSINOPHILS % 1.9 % (0.0-5.0); HEMATOCRIT. 34.6 % (42.0-52.0); HEMOGLOBIN. 11.2 g/dL (14.0-18.0); LYMPHOCYTES % 27.8 % (20.0-50.0); MEAN CORPUSCULAR HEMOGLOBIN 27.1 pg (28.0-32.0); MEAN CORPUSCULAR VOLUME 83.4 fL (80.0-94.0); MEAN PLATELET VOLUME 7.3 fl (7.4-10.4); MONOCYTES % 9.9 % (2.0-8.0); NEUTROPHILS % 59.3 % (40.0-76.0); PLATELET 325 x1000/uL (130-400); RED BLOOD CELL COUNT 4.15 mill/uL (4.7-6.1); RED CELL DISTRIBUTION WIDTH 15.7 % (11.6-14.6)
[2018-04-20 06:05] LABS: CHLORIDE 109 mEq/L (98-107); INR 1.1; PARTIAL THROMBOPLASTIN TIME 28.9 sec (23.4-31.0); PROTHROMBIN TIME 11.4 sec (9.1-11.1)
[2018-04-20] MEDS ORDERED: METOPROLOL TARTRATE 50MG TABLET PO ONE (06:45)
[2018-04-20] MEDS ORDERED: METOPROLOL TARTRATE 5MG/5ML VIAL IV ONE (06:45)
[2018-04-20 07:41] LABS: CLARITY URINE CLEAR (CLEAR); COLOR URINE YELLOW (YELLOW); KETONES URINE NEGATIVE (NEGATIVE); LEUKOCYTE ESTERASE URINE NEGATIVE (NEGATIVE); NITRITE URINE NEGATIVE (NEGATIVE); OCCULT BLOOD URINE TRACE (NEGATIVE); PROTEIN URINE 1+ (NEGATIVE); SPECIFIC GRAVITY URINE 1.024 (1.005-1.030); UROBILINOGEN URINE 0.2 E.U./dL (0.2-1.0)
[2018-04-20] MEDS ORDERED: ACETAMINOPHEN 650MG SUPP PR PRN (08:45)
[2018-04-20] MEDS ORDERED: ACETAMINOPHEN 325MG TABLET PO PRN (08:45)
[2018-04-20] MEDS ORDERED: IPRATROPIUM/ALBUTEROL 0.5-3(2.5)MG/3ML NEB INH PRN (08:45)
[2018-04-20] MEDS ORDERED: ONDANSETRON HCL 4MG/2ML INJ IV PRN (08:45)
[2018-04-20] MEDS ORDERED: ACETAMINOPHEN 650MG/20.3ML UDC GT PRN (08:45)
[2018-04-20] MEDS: BLOOD SUGAR DIAGNOSTIC STRIP TEST SCH ×4 (09:00→20:50)
[2018-04-20] MEDS ORDERED: DEXTROSE 50% WATER 50ML SYRINGE IV PRN (09:00)
[2018-04-20] MEDS ORDERED: SODIUM CHLORIDE 0.9% 250 ML IV ONE (11:15)
[2018-04-20] MEDS: HYDROCODONE/ACETAMINOPHEN 5/325MG TABLET PO PRN (15:05)
[2018-04-20] MEDS: MORPHINE SULFATE 4 MG/ML CPJ (NOT FOR IM USE) IV PRN (17:28)
[2018-04-20 18:00] VITALS: BP 96/61
[2018-04-20] MEDS: INSULIN LISPRO 100 UNITS/ML SUBCUT SCH ×2 (18:10→20:52)
[2018-04-20 18:35] VITALS: BP 94/61
[2018-04-20 20:00] VITALS: BP 100/69
[2018-04-20] MEDS: FUROSEMIDE 100MG/10ML VIAL IVP SCH (20:51)
[2018-04-20] MEDS: ENOXAPARIN 40MG/0.4ML SYR SUBCUT SCH (20:51)
[2018-04-20] MEDS: POTASSIUM CHLORIDE 20MEQ TABLET SR PO SCH (20:51)
[2018-04-20] MEDS ORDERED: VANCOMYCIN 1 G PREMIX 200 ML IV SCH (22:15)
[2018-04-20] MEDS: HYDROCODONE/ACETAMINOPHEN 10/325MG TABLET PO PRN (22:32)
[2018-04-21] VITALS: BP 99/73
[2018-04-21] MEDS: CEFTRIAXONE 1 G PREMIX 50 ML IV SCH ×2 (00:01→23:16)
[2018-04-21] MEDS ORDERED: VANCOMYCIN 1500MG in DEXTROSE 5% WATER 250ML IV NR (01:00)
[2018-04-21 04:00] VITALS: BP 142/86
[2018-04-21 04:42] LABS: *AMPHETAMINES SCREEN URINE NEGATIVE (NEGATIVE); *BARBITURATES SCREEN URINE NEGATIVE (NEGATIVE); *BENZODIAZEPINES SCREEN URINE NEGATIVE (NEGATIVE); *COCAINE SCREEN URINE PRESUMTIVE POSITIVE (NEGATIVE); CANNABINOID URINE SCREEN PRESUMTIVE POSITIVE (NEGATIVE); METHADONE URINE SCREEN NEGATIVE (NEGATIVE); OPIATES URINE SCREEN PRESUMTIVE POSITIVE (NEGATIVE); PHENCYCLIDINE URINE SCREEN NEGATIVE (NEGATIVE)
[2018-04-21] MEDS: BLOOD SUGAR DIAGNOSTIC STRIP TEST SCH ×4 (07:05→21:23)
[2018-04-21 07:41] LABS: BASOPHILS % 0.8 % (0.0-2.0); EOSINOPHILS % 0.8 % (0.0-5.0); HEMATOCRIT. 41.4 % (42.0-52.0); HEMOGLOBIN. 13.3 g/dL (14.0-18.0); LYMPHOCYTES % 27.8 % (20.0-50.0); MEAN CORPUSCULAR HEMOGLOBIN 27.1 pg (28.0-32.0); MEAN CORPUSCULAR VOLUME 84.3 fL (80.0-94.0); MEAN PLATELET VOLUME 7.5 fl (7.4-10.4); MONOCYTES % 9.9 % (2.0-8.0); NEUTROPHILS % 60.7 % (40.0-76.0); PLATELET 376 x1000/uL (130-400); RED CELL DISTRIBUTION WIDTH 15.8 % (11.6-14.6)
[2018-04-21 07:51] LABS: CHLORIDE 108 mEq/L (98-107)
[2018-04-21] MEDS: INSULIN LISPRO 100 UNITS/ML SUBCUT SCH ×4 (07:51→21:24)
[2018-04-21 08:00] VITALS: BP 106/71
[2018-04-21 08:39] LABS: HDL CHOLESTEROL 55 mg/dL (40-59); LDL CHOLESTEROL 52 mg/dL (5-100); PHOSPHORUS 4.5 mg/dL (2.5-4.9); T4 FREE 1.28 ng/dL (0.76-1.46)
[2018-04-21] MEDS: FUROSEMIDE 100MG/10ML VIAL IVP SCH ×2 (09:09→17:15)
[2018-04-21] MEDS: POTASSIUM CHLORIDE 20MEQ TABLET SR PO SCH (09:09)
[2018-04-21] MEDS ORDERED: CLOPIDOGREL 75MG TABLET PO SCH (10:45)
[2018-04-21] MEDS ORDERED: ASPIRIN 81MG TABLET PO SCH (10:45)
[2018-04-21 12:00] VITALS: BP 113/79
[2018-04-21] MEDS ORDERED: VANCOMYCIN 500 MG PREMIX 100 ML IV NR (12:00)
[2018-04-21] MEDS ORDERED: POLYETHYLENE GLYCOL 3350 (17GM) 1 DOSE PACK PO NR (12:00)
[2018-04-21] MEDS ORDERED: VANCOMYCIN 1250MG in DEXTROSE 5% WATER 250ML IV SCH (12:00)
[2018-04-21] MEDS: DOCUSATE SODIUM 100MG CAPSULE PO SCH ×2 (13:14→17:00)
[2018-04-21 16:00] VITALS: BP 106/79
[2018-04-21] MEDS ORDERED: DEXTROSE 50% WATER 50ML SYRINGE IV PRN (18:30)
[2018-04-21] MEDS: ENOXAPARIN 40MG/0.4ML SYR SUBCUT SCH (18:56)
[2018-04-21] MEDS: METOPROLOL TARTRATE 25MG TABLET PO SCH (20:29)
[2018-04-21] MEDS: HYDROCODONE/ACETAMINOPHEN 10/325MG TABLET PO PRN (20:29)
[2018-04-21] MEDS ORDERED: CARVEDILOL 3.125 MG TABLET PO SCH (21:00)
[2018-04-21] MEDS: ZOLPIDEM TARTRATE 5MG TABLET PO PRN (23:15)
[2018-04-22] VITALS: BP 111/82
[2018-04-22 04:00] VITALS: BP 107/77
[2018-04-22] MEDS: BLOOD SUGAR DIAGNOSTIC STRIP TEST SCH ×4 (06:03→21:13)
[2018-04-22] MEDS: FUROSEMIDE 100MG/10ML VIAL IVP SCH ×2 (06:03→16:51)
[2018-04-22 07:56] VITALS: BP 115/79
[2018-04-22] MEDS: INSULIN LISPRO 100 UNITS/ML SUBCUT SCH ×4 (08:10→21:00)
[2018-04-22 08:26] LABS: HIV SCREEN 4G Non Reactive (Non Reactive)
[2018-04-22] MEDS: LINAGLIPTIN 5MG TABLET PO SCH (09:21)
[2018-04-22] MEDS: DOCUSATE SODIUM 100MG CAPSULE PO SCH ×2 (09:21→16:50)
[2018-04-22] MEDS: METOPROLOL TARTRATE 25MG TABLET PO SCH ×3 (09:22→21:17)
[2018-04-22] MEDS: POTASSIUM CHLORIDE 20MEQ TABLET SR PO SCH (09:23)
[2018-04-22 10:33] LABS: CLARITY URINE TURBID (CLEAR); COLOR URINE ORANGE (YELLOW); KETONES URINE NEGATIVE (NEGATIVE); LEUKOCYTE ESTERASE URINE 1+ (NEGATIVE); NITRITE URINE NEGATIVE (NEGATIVE); OCCULT BLOOD URINE 3+ (NEGATIVE); PROTEIN URINE 2+ (NEGATIVE); SPECIFIC GRAVITY URINE 1.009 (1.005-1.030); UROBILINOGEN URINE 0.2 E.U./dL (0.2-1.0)
[2018-04-22 12:00] VITALS: BP 119/78
[2018-04-22] MEDS: LOSARTAN POTASSIUM 25 MG TABLET PO SCH (13:25)
[2018-04-22 16:00] VITALS: BP 107/75
[2018-04-22 16:19] LABS: EOSINOPHILS % 1.2 % (0.0-5.0); HEMATOCRIT. 40.8 % (42.0-52.0); HEMOGLOBIN. 13.2 g/dL (14.0-18.0); LYMPHOCYTES % 24.7 % (20.0-50.0); MEAN CORPUSCULAR HEMOGLOBIN 27.3 pg (28.0-32.0); MEAN CORPUSCULAR VOLUME 83.9 fL (80.0-94.0); MEAN PLATELET VOLUME 7.6 fl (7.4-10.4); MONOCYTES % 11.3 % (2.0-8.0); NEUTROPHILS % 61.8 % (40.0-76.0); PLATELET 339 x1000/uL (130-400); RED BLOOD CELL COUNT 4.86 mill/uL (4.7-6.1); RED CELL DISTRIBUTION WIDTH 15.8 % (11.6-14.6)
[2018-04-22 16:27] LABS: CHLORIDE 107 mEq/L (98-107)
[2018-04-22 16:29] LABS: PHOSPHORUS 5.1 mg/dL (2.5-4.9)
[2018-04-22] MEDS: ENOXAPARIN 40MG/0.4ML SYR SUBCUT SCH (16:50)
[2018-04-22] MEDS: VANCOMYCIN 1250MG in DEXTROSE 5% WATER 250ML IV SCH (18:00)
[2018-04-22 20:00] VITALS: BP 115/84
[2018-04-22] MEDS: CEFTRIAXONE 1 G PREMIX 50 ML IV SCH (21:18)
[2018-04-22] MEDS: ZOLPIDEM TARTRATE 5MG TABLET PO PRN (21:26)
[2018-04-23 00:05] VITALS: BP 103/76
[2018-04-23] MEDS: HYDROCODONE/ACETAMINOPHEN 10/325MG TABLET PO PRN ×2 (00:21→23:23)
[2018-04-23 04:00] VITALS: BP 108/61
[2018-04-23] MEDS: METOPROLOL TARTRATE 25MG TABLET PO SCH ×3 (06:00→22:00)
[2018-04-23] MEDS: BLOOD SUGAR DIAGNOSTIC STRIP TEST SCH ×4 (06:22→20:19)
[2018-04-23 07:55] VITALS: BP 96/72
[2018-04-23 08:10] LABS: BASOPHILS % 0.9 % (0.0-2.0); HEMATOCRIT. 35.4 % (42.0-52.0); HEMOGLOBIN. 11.9 g/dL (14.0-18.0); LYMPHOCYTES % 26.3 % (20.0-50.0); MEAN CORPUSCULAR HEMOGLOBIN 27.7 pg (28.0-32.0); MEAN CORPUSCULAR VOLUME 82.6 fL (80.0-94.0); MEAN PLATELET VOLUME 7.9 fl (7.4-10.4); MONOCYTES % 10.7 % (2.0-8.0); NEUTROPHILS % 60.1 % (40.0-76.0); PLATELET 325 x1000/uL (130-400); RED BLOOD CELL COUNT 4.29 mill/uL (4.7-6.1); RED CELL DISTRIBUTION WIDTH 15.6 % (11.6-14.6)
[2018-04-23 08:36] LABS: HEPATITIS B SURFACE ANTIGEN NEGATIVE
[2018-04-23] MEDS: INSULIN LISPRO 100 UNITS/ML SUBCUT SCH ×4 (08:38→20:19)
[2018-04-23] MEDS: POTASSIUM CHLORIDE 20MEQ TABLET SR PO SCH (08:39)
[2018-04-23] MEDS: LINAGLIPTIN 5MG TABLET PO SCH (08:39)
[2018-04-23] MEDS: FUROSEMIDE 100MG/10ML VIAL IVP SCH ×2 (08:39→16:58)
[2018-04-23] MEDS: DOCUSATE SODIUM 100MG CAPSULE PO SCH ×2 (08:39→16:58)
[2018-04-23] MEDS: LOSARTAN POTASSIUM 25 MG TABLET PO SCH (08:39)
[2018-04-23 09:05] LABS: HEPATITIS A AB IGM NEGATIVE (NEGATIVE)
[2018-04-23 09:08] LABS: FOLICLE STIMULATING HORMONE 3.5 mIU/mL (1.5-12.4); LUTEINIZING HORMONE 2.6 mIU/mL (1.7-8.6)
[2018-04-23 09:25] LABS: CHLORIDE 105 mEq/L (98-107)
[2018-04-23 09:38] LABS: PHOSPHORUS 4.7 mg/dL (2.5-4.9)
[2018-04-23] MEDS: VANCOMYCIN 1250MG in DEXTROSE 5% WATER 250ML IV SCH (11:53)
[2018-04-23 12:00] VITALS: BP 98/74
[2018-04-23 16:00] VITALS: BP 111/79
[2018-04-23] MEDS: ENOXAPARIN 40MG/0.4ML SYR SUBCUT SCH (17:04)
[2018-04-23 20:00] VITALS: BP 112/79
[2018-04-23] MEDS: CEFTRIAXONE 1 G PREMIX 50 ML IV SCH (22:19)
[2018-04-23] MEDS: ZOLPIDEM TARTRATE 5MG TABLET PO PRN (23:23)
[2018-04-24] VITALS: BP 120/83
[2018-04-24 04:00] VITALS: BP 103/74
[2018-04-24] MEDS: METOPROLOL TARTRATE 25MG TABLET PO SCH ×3 (05:22→22:02)
[2018-04-24] MEDS: BLOOD SUGAR DIAGNOSTIC STRIP TEST SCH ×4 (06:17→21:59)
[2018-04-24] MEDS: FUROSEMIDE 100MG/10ML VIAL IVP SCH (06:18)
[2018-04-24 08:00] VITALS: BP 97/65
[2018-04-24] MEDS: MORPHINE SULFATE 4 MG/ML CPJ (NOT FOR IM USE) IV PRN ×4 (08:55→20:22)
[2018-04-24] MEDS: LOSARTAN POTASSIUM 25 MG TABLET PO SCH (09:00)
[2018-04-24] MEDS: DOCUSATE SODIUM 100MG CAPSULE PO SCH ×2 (09:11→17:41)
[2018-04-24] MEDS: LINAGLIPTIN 5MG TABLET PO SCH (09:11)
[2018-04-24] MEDS: INSULIN LISPRO 100 UNITS/ML SUBCUT SCH ×4 (09:13→21:00)
[2018-04-24 09:49] LABS: BASOPHILS % 0.8 % (0.0-2.0); EOSINOPHILS % 2.3 % (0.0-5.0); HEMOGLOBIN. 11.6 g/dL (14.0-18.0); LYMPHOCYTES % 24.1 % (20.0-50.0); MEAN CORPUSCULAR HEMOGLOBIN 27.2 pg (28.0-32.0); MEAN CORPUSCULAR VOLUME 82.2 fL (80.0-94.0); MONOCYTES % 13.2 % (2.0-8.0); NEUTROPHILS % 59.6 % (40.0-76.0); PLATELET 321 x1000/uL (130-400); RED BLOOD CELL COUNT 4.26 mill/uL (4.7-6.1); RED CELL DISTRIBUTION WIDTH 15.2 % (11.6-14.6)
[2018-04-24 10:04] LABS: PHOSPHORUS 4.4 mg/dL (2.5-4.9)
[2018-04-24 12:00] VITALS: BP 120/75
[2018-04-24] MEDS: VANCOMYCIN 1250MG in DEXTROSE 5% WATER 250ML IV SCH (12:33)
[2018-04-24 13:06] LABS: TESTOSTERONE FREE 4.7 pg/mL (7.2-24.0)
[2018-04-24] MEDS: GLIMEPIRIDE 1MG TABLET PO SCH (15:56)
[2018-04-24 16:00] VITALS: BP 106/65
[2018-04-24] MEDS: FUROSEMIDE 40MG/4ML VIAL IVP SCH (17:41)
[2018-04-24] MEDS ORDERED: GLIMEPIRIDE 1MG TABLET PO SCH (18:10)
[2018-04-24 20:00] VITALS: BP 110/71
[2018-04-24] MEDS: CEFTRIAXONE 1 G PREMIX 50 ML IV SCH (23:17)
[2018-04-24] MEDS: ZOLPIDEM TARTRATE 5MG TABLET PO PRN (23:26)
[2018-04-25] VITALS: BP 94/58
[2018-04-25 04:00] VITALS: BP 120/84
[2018-04-25] MEDS: MORPHINE SULFATE 4 MG/ML CPJ (NOT FOR IM USE) IV PRN ×3 (04:04→22:54)
[2018-04-25] MEDS: HYDROCODONE/ACETAMINOPHEN 5/325MG TABLET PO PRN (05:15)
[2018-04-25] MEDS: METOPROLOL TARTRATE 25MG TABLET PO SCH (06:34)
[2018-04-25 07:25] LABS: BASOPHILS % 0.7 % (0.0-2.0); EOSINOPHILS % 1.8 % (0.0-5.0); HEMATOCRIT. 35.1 % (42.0-52.0); HEMOGLOBIN. 11.5 g/dL (14.0-18.0); LYMPHOCYTES % 25.1 % (20.0-50.0); MEAN CORPUSCULAR HEMOGLOBIN 26.9 pg (28.0-32.0); MEAN CORPUSCULAR VOLUME 82.6 fL (80.0-94.0); MEAN PLATELET VOLUME 7.7 fl (7.4-10.4); MONOCYTES % 11.8 % (2.0-8.0); NEUTROPHILS % 60.6 % (40.0-76.0); PLATELET 295 x1000/uL (130-400); RED BLOOD CELL COUNT 4.25 mill/uL (4.7-6.1); RED CELL DISTRIBUTION WIDTH 15.8 % (11.6-14.6)
[2018-04-25 07:32] LABS: CHLORIDE 100 mEq/L (98-107)
[2018-04-25] MEDS: BLOOD SUGAR DIAGNOSTIC STRIP TEST SCH ×4 (07:40→21:30)
[2018-04-25 08:00] VITALS: BP 130/88
[2018-04-25] MEDS: GLIMEPIRIDE 1MG TABLET PO SCH (09:23)
[2018-04-25] MEDS: LINAGLIPTIN 5MG TABLET PO SCH (09:23)
[2018-04-25] MEDS: DOCUSATE SODIUM 100MG CAPSULE PO SCH ×2 (09:23→17:00)
[2018-04-25] MEDS: FUROSEMIDE 40MG/4ML VIAL IVP SCH (09:23)
[2018-04-25] MEDS: LOSARTAN POTASSIUM 25 MG TABLET PO SCH (09:24)
[2018-04-25] MEDS: VANCOMYCIN 1500MG in DEXTROSE 5% WATER 250ML IV SCH (09:36)
[2018-04-25] MEDS: INSULIN LISPRO 100 UNITS/ML SUBCUT SCH ×4 (09:46→21:00)
[2018-04-25 12:00] VITALS: BP 101/59
[2018-04-25 20:00] VITALS: BP 104/60
[2018-04-25] MEDS: CARVEDILOL 6.25 MG TABLET PO SCH (21:00)
[2018-04-25] MEDS ORDERED: HYDROCODONE/ACETAMINOPHEN 5/325MG TABLET PO PRN (22:45)
[2018-04-25] MEDS: CEFTRIAXONE 1 G PREMIX 50 ML IV SCH (22:58)
[2018-04-26] VITALS: BP 111/77
[2018-04-26] MEDS: MORPHINE SULFATE 4 MG/ML CPJ (NOT FOR IM USE) IV PRN ×3 (03:40→21:10)
[2018-04-26 04:00] VITALS: BP 123/72
[2018-04-26] MEDS: BLOOD SUGAR DIAGNOSTIC STRIP TEST SCH ×4 (06:54→21:01)
[2018-04-26 07:38] LABS: BASOPHILS % 0.6 % (0.0-2.0); HEMATOCRIT. 36.4 % (42.0-52.0); HEMOGLOBIN. 12.1 g/dL (14.0-18.0); LYMPHOCYTES % 20.3 % (20.0-50.0); MEAN CORPUSCULAR HEMOGLOBIN 27.6 pg (28.0-32.0); MEAN CORPUSCULAR VOLUME 82.7 fL (80.0-94.0); MEAN PLATELET VOLUME 7.7 fl (7.4-10.4); MONOCYTES % 11.4 % (2.0-8.0); NEUTROPHILS % 65.7 % (40.0-76.0); PLATELET 308 x1000/uL (130-400); RED BLOOD CELL COUNT 4.39 mill/uL (4.7-6.1); RED CELL DISTRIBUTION WIDTH 15.6 % (11.6-14.6)
[2018-04-26] MEDS: FUROSEMIDE 40MG/4ML VIAL IVP SCH (07:48)
[2018-04-26] MEDS: INSULIN LISPRO 100 UNITS/ML SUBCUT SCH ×4 (07:48→21:09)
[2018-04-26 07:59] LABS: CHLORIDE 99 mEq/L (98-107)
[2018-04-26 08:00] VITALS: BP 117/71
[2018-04-26] MEDS: CARVEDILOL 6.25 MG TABLET PO SCH ×2 (08:14→21:10)
[2018-04-26] MEDS: LINAGLIPTIN 5MG TABLET PO SCH (08:14)
[2018-04-26] MEDS: DOCUSATE SODIUM 100MG CAPSULE PO SCH ×2 (08:14→17:41)
[2018-04-26] MEDS: GLIMEPIRIDE 1MG TABLET PO SCH (08:18)
[2018-04-26] MEDS: VANCOMYCIN 1500MG in DEXTROSE 5% WATER 250ML IV SCH (08:18)
[2018-04-26] MEDS: LOSARTAN POTASSIUM 25 MG TABLET PO SCH (08:18)
[2018-04-26 12:00] VITALS: BP 101/67
[2018-04-26 16:00] VITALS: BP 100/70
[2018-04-26 20:00] VITALS: BP 115/85
[2018-04-26] MEDS: ZOLPIDEM TARTRATE 5MG TABLET PO PRN (22:30)
[2018-04-26] MEDS: CEFTRIAXONE 1 G PREMIX 50 ML IV SCH (22:31)
[2018-04-27] VITALS: BP 123/69
[2018-04-27] MEDS: MORPHINE SULFATE 4 MG/ML CPJ (NOT FOR IM USE) IV PRN ×4 (01:58→21:03)
[2018-04-27 04:00] VITALS: BP 106/65
[2018-04-27] MEDS: BLOOD SUGAR DIAGNOSTIC STRIP TEST SCH ×4 (06:47→20:49)
[2018-04-27 07:51] VITALS: BP 125/84
[2018-04-27] MEDS: INSULIN LISPRO 100 UNITS/ML SUBCUT SCH ×4 (08:11→20:50)
[2018-04-27] MEDS: LINAGLIPTIN 5MG TABLET PO SCH (08:12)
[2018-04-27] MEDS: DOCUSATE SODIUM 100MG CAPSULE PO SCH ×2 (08:12→17:48)
[2018-04-27] MEDS: FUROSEMIDE 40MG/4ML VIAL IVP SCH ×2 (08:12→17:49)
[2018-04-27] MEDS: GLIMEPIRIDE 1MG TABLET PO SCH (08:13)
[2018-04-27] MEDS: CARVEDILOL 6.25 MG TABLET PO SCH (08:13)
[2018-04-27] MEDS: LOSARTAN POTASSIUM 25 MG TABLET PO SCH (08:13)
[2018-04-27] MEDS: VANCOMYCIN 1500MG in DEXTROSE 5% WATER 250ML IV SCH (08:14)
[2018-04-27 12:00] VITALS: BP 106/65
[2018-04-27 12:22] LABS: CHLORIDE 104 mEq/L (98-107)
[2018-04-27 12:26] LABS: HEMATOCRIT 31.9 % (42.0-52.0); HEMOGLOBIN 10.4 g/dL (14.0-18.0); MEAN CORPUSCULAR VOLUME 82.5 fL (80.0-94.0); PLATELET 259 x1000/uL (130-400); RED BLOOD CELL COUNT 3.87 mill/uL (4.7-6.1); RED CELL DISTRIBUTION WIDTH 15.4 % (11.6-14.6)
[2018-04-27 12:27] LABS: PHOSPHORUS 3.3 mg/dL (2.5-4.9)
[2018-04-27] MEDS: CLOPIDOGREL 75MG TABLET PO SCH (14:50)
[2018-04-27] MEDS: ASPIRIN 81MG EC TABLET PO SCH (14:51)
[2018-04-27] MEDS ORDERED: FUROSEMIDE 40MG/4ML VIAL IVP SCH (15:00)
[2018-04-27 16:00] VITALS: BP 111/68
[2018-04-27 20:00] VITALS: BP 112/71
[2018-04-27] MEDS: CEFTRIAXONE 1 G PREMIX 50 ML IV SCH (22:36)
[2018-04-28] VITALS: BP 122/76
[2018-04-28] MEDS: MORPHINE SULFATE 4 MG/ML CPJ (NOT FOR IM USE) IV PRN ×4 (02:08→17:17)
[2018-04-28 04:00] VITALS: BP 116/69
[2018-04-28] MEDS: BLOOD SUGAR DIAGNOSTIC STRIP TEST SCH ×3 (06:53→17:17)
[2018-04-28 08:00] VITALS: BP 116/85
[2018-04-28 08:00] LABS: CHLORIDE 97 mEq/L (98-107)
[2018-04-28 08:02] LABS: BASOPHILS % 0.9 % (0.0-2.0); EOSINOPHILS % 2.8 % (0.0-5.0); HEMATOCRIT. 35.9 % (42.0-52.0); HEMOGLOBIN. 11.6 g/dL (14.0-18.0); LYMPHOCYTES % 21.1 % (20.0-50.0); MEAN CORPUSCULAR HEMOGLOBIN 26.6 pg (28.0-32.0); MEAN CORPUSCULAR VOLUME 82.5 fL (80.0-94.0); MEAN PLATELET VOLUME 7.6 fl (7.4-10.4); MONOCYTES % 10.8 % (2.0-8.0); NEUTROPHILS % 64.4 % (40.0-76.0); PLATELET 295 x1000/uL (130-400); RED BLOOD CELL COUNT 4.35 mill/uL (4.7-6.1); RED CELL DISTRIBUTION WIDTH 15.3 % (11.6-14.6)
[2018-04-28 08:09] LABS: PHOSPHORUS 3.4 mg/dL (2.5-4.9)
[2018-04-28] MEDS: INSULIN LISPRO 100 UNITS/ML SUBCUT SCH ×3 (09:21→17:25)
[2018-04-28] MEDS: LINAGLIPTIN 5MG TABLET PO SCH (09:22)
[2018-04-28] MEDS: ASPIRIN 81MG EC TABLET PO SCH (09:22)
[2018-04-28] MEDS: FUROSEMIDE 40MG/4ML VIAL IVP SCH ×2 (09:22→17:17)
[2018-04-28] MEDS: LOSARTAN POTASSIUM 25 MG TABLET PO SCH (09:22)
[2018-04-28] MEDS: DOCUSATE SODIUM 100MG CAPSULE PO SCH ×2 (09:22→17:17)
[2018-04-28] MEDS: CLOPIDOGREL 75MG TABLET PO SCH (09:22)
[2018-04-28] MEDS: GLIMEPIRIDE 1MG TABLET PO SCH (09:22)
[2018-04-28] MEDS ORDERED: VANCOMYCIN 1500MG in DEXTROSE 5% WATER 250ML IV SCH (11:00)
[2018-04-28 12:00] VITALS: BP 105/68
[2018-04-28] MEDS ORDERED: FURO80TA87 MT (15:45)
[2018-04-28] MEDS ORDERED: CLOP75TA16 PO (15:45)
[2018-04-28] MEDS ORDERED: AMA1 PO (15:45)
[2018-04-28] MEDS ORDERED: DOCU-138 PO (15:45)
[2018-04-28] MEDS ORDERED: LOSA25TA3 PO (15:45)
[2018-04-28] MEDS ORDERED: LINA5TAB PO (15:45)
[2018-04-28 16:00] VITALS: BP 103/69
[2018-04-28] MEDS ORDERED: FURO-151 MT (16:06)
[2018-04-28 16:35] VITALS: BP 103/69
== END 2018-04-28 18:29 | DRG 727 ==
LOC: ER 04:14 → 7WST 05:58 → EDBEDREQTM 06:00 → EDBEDREQ 06:00 → ENRESERV 16:33
PROVIDERS: ADMIT Internal Medicine; ATTEND Internal Medicine
DX: N49.2 Inflammatory disorders of scrotum (principal); J96.00 Acute respiratory failure, unspecified whether with hypoxia or hypercapnia; N17.0 Acute kidney failure with tubular necrosis; I50.23 Acute on chronic systolic (congestive) heart failure; E43 Unspecified severe protein-calorie malnutrition; E87.2 Acidosis; I13.0 Hypertensive heart and chronic kidney disease with heart failure and stage 1 through stage 4 chronic kidney disease, or unspecified chronic kidney disease; I42.0 Dilated cardiomyopathy; I47.1 Supraventricular tachycardia; J98.11 Atelectasis; S37.90XA Unspecified injury of unspecified urinary and pelvic organ, initial encounter; F14.10 Cocaine abuse, uncomplicated; F12.10 Cannabis abuse, uncomplicated; F17.210 Nicotine dependence, cigarettes, uncomplicated; I95.9 Hypotension, unspecified; E78.00 Pure hypercholesterolemia, unspecified; E11.51 Type 2 diabetes mellitus with diabetic peripheral angiopathy without gangrene; K31.89 Other diseases of stomach and duodenum; E78.5 Hyperlipidemia, unspecified; I25.10 Atherosclerotic heart disease of native coronary artery without angina pectoris; F11.10 Opioid abuse, uncomplicated; K21.9 Gastro-esophageal reflux disease without esophagitis; E11.22 Type 2 diabetes mellitus with diabetic chronic kidney disease; N18.9 Chronic kidney disease, unspecified; J45.909 Unspecified asthma, uncomplicated; E11.65 Type 2 diabetes mellitus with hyperglycemia; F10.10 Alcohol abuse, uncomplicated; E11.40 Type 2 diabetes mellitus with diabetic neuropathy, unspecified; N40.0 Benign prostatic hyperplasia without lower urinary tract symptoms; R31.9 Hematuria, unspecified; X58.XXXA Exposure to other specified factors, initial encounter; Y92.238 Other place in hospital as the place of occurrence of the external cause; Y99.8 Other external cause status; Y93.89 Activity, other specified; Z89.421 Acquired absence of other right toe(s); Z93.3 Colostomy status; Z95.5 Presence of coronary angioplasty implant and graft; Z86.73 Personal history of transient ischemic attack (TIA), and cerebral infarction without residual deficits; Z83.3 Family history of diabetes mellitus; Z82.0 Family history of epilepsy and other diseases of the nervous system; Z59.0 Homelessness; Z88.0 Allergy status to penicillin; Z68.30 Body mass index [BMI] 30.0-30.9, adult; Z79.02 Long term (current) use of antithrombotics/antiplatelets; Z79.82 Long term (current) use of aspirin; Z89.422 Acquired absence of other left toe(s); Z86.14 Personal history of Methicillin resistant Staphylococcus aureus infection
CPT/HCPCS: 36415; 71045; 71250; 74176; 76870; 80048; 80061; 80202; 80305; 82550; 82553; 82570; 82962; 83001; 83002; 83036; 83735; 83880; 84100; 84145; 84156; 84300; 84402; 84403; 84439; 84443; 84481; 84484; 85027; 85379; 86705; 86709; 86803; 87340; 87389; 93005; 93306; 93970; 93976; 96374; 96375; 96376; 97116; 97162; 97530; 99285; J0696; J1650; J1815; J1940; J2270; J2405; J3370; J3490; J7050; J7060

== ENCOUNTER 2018-08-26 13:40 | Inpatient (IN) | payer MEDICAID, MEDICARE ==
[~2018-08-26] VITALS: Ht 175.3 cm; Wt 83.0 kg
[~2018-08-26 13:40] MED LIST changes: +AMA1 PO; +CLOP75TA16 PO; +DOCU-138 PO; +FURO-151 MT; +LINA5TAB PO; +LOSA25TA3 PO
[2018-08-26] MEDS ORDERED: CLINDAMYCIN 600 MG in DEXTROSE 5% WATER 50 ML IV ONE (20:45)
[2018-08-26 21:50] LABS: CLARITY URINE CLEAR (CLEAR); COLOR URINE YELLOW (YELLOW); KETONES URINE NEGATIVE (NEGATIVE); LEUKOCYTE ESTERASE URINE 3+ (NEGATIVE); NITRITE URINE NEGATIVE (NEGATIVE); OCCULT BLOOD URINE NEGATIVE (NEGATIVE); PH URINE 5.5 (4.5-8.0); PROTEIN URINE NEGATIVE (NEGATIVE); SPECIFIC GRAVITY URINE 1.016 (1.005-1.030); UROBILINOGEN URINE 0.2 E.U./dL (0.2-1.0)
[2018-08-26 23:47] LABS: EOSINOPHILS % 5.5 % (0.0-5.0); HEMATOCRIT. 33.7 % (42.0-52.0); LYMPHOCYTES % 23.1 % (20.0-50.0); MEAN CORPUSCULAR HEMOGLOBIN 26.6 pg (28.0-32.0); MEAN CORPUSCULAR VOLUME 81.2 fL (80.0-94.0); MEAN PLATELET VOLUME 6.9 fl (7.4-10.4); MONOCYTES % 12.8 % (2.0-8.0); NEUTROPHILS % 57.6 % (40.0-76.0); PLATELET 352 x1000/uL (130-400); RED BLOOD CELL COUNT 4.15 mill/uL (4.7-6.1); RED CELL DISTRIBUTION WIDTH 18.7 % (11.6-14.6)
[2018-08-26 23:50] LABS: CHLORIDE 107 mEq/L (98-107)
[2018-08-26 23:52] LABS: INR 1.1
[2018-08-27] VITALS (7 sets, daily range): BP systolic 106–119; BP diastolic 65–85
[2018-08-27] MEDS: INSULIN LISPRO 100 UNITS/ML SUBCUT SCH ×3 (08:20→21:52)
[2018-08-27] MEDS ORDERED: ACETAMINOPHEN 325MG TABLET PO PRN (08:30)
[2018-08-27] MEDS ORDERED: DEXTROSE 50% WATER 50ML SYRINGE IV PRN (08:30)
[2018-08-27] MEDS ORDERED: ONDANSETRON HCL 4MG/2ML INJ IV PRN (08:30)
[2018-08-27] MEDS: BLOOD SUGAR DIAGNOSTIC STRIP TEST SCH ×3 (09:45→21:53)
[2018-08-27] MEDS: FUROSEMIDE 40MG/4ML VIAL IVP SCH (09:47)
[2018-08-27] MEDS: ENOXAPARIN 40MG/0.4ML SYR SUBCUT SCH (09:48)
[2018-08-27] MEDS: CARVEDILOL 3.125 MG TABLET PO SCH ×2 (09:48→21:00)
[2018-08-27] MEDS: HYDROCODONE/ACETAMINOPHEN 5/325MG TABLET PO PRN ×2 (09:49→22:01)
[2018-08-27] MEDS ORDERED: VANCOMYCIN 1500MG in DEXTROSE 5% WATER 250ML IV SCH (10:00)
[2018-08-27] MEDS: NICOTINE 7MG PATCH TD SCH (12:13)
[2018-08-27] MEDS ORDERED: TAMS0.4C31 PO (12:22)
[2018-08-27] MEDS ORDERED: POTASSIUM CHLORIDE 20MEQ TABLET SR PO SCH (13:15)
[2018-08-27 14:11] LABS: *BARBITURATES SCREEN URINE NEGATIVE (NEGATIVE); *BENZODIAZEPINES SCREEN URINE NEGATIVE (NEGATIVE); *COCAINE SCREEN URINE NEGATIVE (NEGATIVE)
[2018-08-27 14:12] LABS: *AMPHETAMINES SCREEN URINE NEGATIVE (NEGATIVE); CANNABINOID URINE SCREEN PRESUMTIVE POSITIVE (NEGATIVE); METHADONE URINE SCREEN NEGATIVE (NEGATIVE); OPIATES URINE SCREEN NEGATIVE (NEGATIVE); PHENCYCLIDINE URINE SCREEN NEGATIVE (NEGATIVE)
[2018-08-27] MEDS: LEVOFLOXACIN 500MG PREMIX 100 ML IV SCH (14:21)
[2018-08-27] MEDS: ASPIRIN 325MG EC TABLET PO SCH (14:22)
[2018-08-27] MEDS: NITROGLYCERIN OINT 1GM/INCH UDPKT TD SCH (14:22)
[2018-08-27] MEDS ORDERED: CARVEDILOL 3.125 MG TABLET PO SCH (21:00)
[2018-08-27] MEDS ORDERED: VANCOMYCIN 750 MG PREMIX 150 ML IV SCH (21:00)
[2018-08-28] VITALS: BP 97/61
[2018-08-28] MEDS: NITROGLYCERIN OINT 1GM/INCH UDPKT TD SCH ×3 (00:11→12:43)
[2018-08-28 04:00] VITALS: BP 94/58
[2018-08-28] MEDS ORDERED: VANCOMYCIN 1 G PREMIX 200 ML IV SCH (06:00)
[2018-08-28] MEDS: BLOOD SUGAR DIAGNOSTIC STRIP TEST SCH ×2 (06:38→12:16)
[2018-08-28 07:34] LABS: BASOPHILS % 1.1 % (0.0-2.0); HEMATOCRIT. 31.5 % (42.0-52.0); LYMPHOCYTES % 23.3 % (20.0-50.0); MEAN CORPUSCULAR VOLUME 81.9 fL (80.0-94.0); MEAN PLATELET VOLUME 7.1 fl (7.4-10.4); MONOCYTES % 14.1 % (2.0-8.0); NEUTROPHILS % 55.5 % (40.0-76.0); PLATELET 352 x1000/uL (130-400); RED BLOOD CELL COUNT 3.85 mill/uL (4.7-6.1); RED CELL DISTRIBUTION WIDTH 19.1 % (11.6-14.6)
[2018-08-28 07:58] LABS: CHLORIDE 104 mEq/L (98-107)
[2018-08-28 08:44] VITALS: BP 105/76
[2018-08-28] MEDS ORDERED: POTASSIUM CHLORIDE 20MEQ TABLET SR PO SCH (09:00)
[2018-08-28] MEDS: FUROSEMIDE 40MG/4ML VIAL IVP SCH (09:14)
[2018-08-28] MEDS: CARVEDILOL 3.125 MG TABLET PO SCH (09:15)
[2018-08-28] MEDS: NICOTINE 7MG PATCH TD SCH (09:15)
[2018-08-28] MEDS: ENOXAPARIN 40MG/0.4ML SYR SUBCUT SCH (09:15)
[2018-08-28] MEDS: ASPIRIN 325MG EC TABLET PO SCH (09:15)
[2018-08-28] MEDS: LEVOFLOXACIN 500MG PREMIX 100 ML IV SCH (09:15)
[2018-08-28] MEDS: INSULIN LISPRO 100 UNITS/ML SUBCUT SCH ×2 (09:24→12:46)
[2018-08-28] MEDS ORDERED: IOHEXOL-350 100 ML BOTTLE ONE (10:13)
[2018-08-28 12:19] VITALS: BP 102/72
[2018-08-28 16:32] VITALS: BP 105/66
[2018-08-28] MEDS ORDERED: ASA5EC PO (16:47)
[2018-08-28] MEDS ORDERED: POTA10CA42 MT (16:47)
[2018-08-28] MEDS ORDERED: COR3 PO (16:47)
[2018-08-28] MEDS ORDERED: LEVO750T46 MT (16:47)
[2018-08-28 20:00] VITALS: BP 108/65
== END 2018-08-28 20:20 | disposition home or self-care (01) | DRG 622 ==
LOC: ER 13:40 → EDBEDREQTM 21:33 → EDBEDREQ 21:33 → ENRESERV 08-27 07:37 → 6WST 08-27 08:48
PROVIDERS: ADMIT Internal Medicine; ATTEND Internal Medicine
PROC: 0JBQ0ZZ Excision of Right Foot Subcutaneous Tissue and Fascia, Open Approach (ICD-10-PCS; principal; 2018-08-27)
DX: E11.621 Type 2 diabetes mellitus with foot ulcer (principal); I50.23 Acute on chronic systolic (congestive) heart failure; L03.115 Cellulitis of right lower limb; E44.1 Mild protein-calorie malnutrition; I42.9 Cardiomyopathy, unspecified; N39.0 Urinary tract infection, site not specified; L97.519 Non-pressure chronic ulcer of other part of right foot with unspecified severity; E11.51 Type 2 diabetes mellitus with diabetic peripheral angiopathy without gangrene; E11.42 Type 2 diabetes mellitus with diabetic polyneuropathy; D64.9 Anemia, unspecified; R74.0 Nonspecific elevation of levels of transaminase and lactic acid dehydrogenase [LDH]; F32.9 Major depressive disorder, single episode, unspecified; I11.0 Hypertensive heart disease with heart failure; J44.9 Chronic obstructive pulmonary disease, unspecified; M25.774 Osteophyte, right foot; I49.1 Atrial premature depolarization; I25.10 Atherosclerotic heart disease of native coronary artery without angina pectoris; F17.210 Nicotine dependence, cigarettes, uncomplicated; F12.10 Cannabis abuse, uncomplicated; I25.2 Old myocardial infarction; Z95.5 Presence of coronary angioplasty implant and graft; Z89.411 Acquired absence of right great toe; Z89.421 Acquired absence of other right toe(s); Z68.27 Body mass index [BMI] 27.0-27.9, adult; Z79.82 Long term (current) use of aspirin; Z79.4 Long term (current) use of insulin; Z88.0 Allergy status to penicillin; Z71.6 Tobacco abuse counseling; Z83.79 Family history of other diseases of the digestive system; Z82.49 Family history of ischemic heart disease and other diseases of the circulatory system; Z83.3 Family history of diabetes mellitus; Z82.0 Family history of epilepsy and other diseases of the nervous system; Z81.8 Family history of other mental and behavioral disorders
CPT/HCPCS: 36415; 71045; 72191; 73630; 73706; 80048; 80305; 82962; 83036; 83605; 83880; 84484; 87070; 87075; 87076; 87077; 87186; 93005; 93923; 93970; 96365; 96372; 96375; 99285; J1650; J1815; J1940; J1956; J3370; J3490; J7050; J7060; Q9967

== ENCOUNTER 2018-10-13 14:03 | Inpatient (IN) | payer MEDICARE, MEDICAID ==
[~2018-10-13] VITALS: Ht 175.3 cm; Wt 78.0 kg
[~2018-10-13 14:03] MED LIST changes: +ASA5EC PO; -ASPI-1159 PO; -ASPI-1160 PO; +COR3 PO; +LEVO750T46 MT; -PLAVIX PO; +POTA10CA42 MT; +TAMS0.4C31 PO
[2018-10-13] MEDS ORDERED: VANCOMYCIN 1 G PREMIX 200 ML IV SCH (15:45)
[2018-10-13] MEDS ORDERED: PIPERACILLIN/TAZOBACTAM 3.375GM/50ML PREMIX IV ONE (15:45)
[2018-10-13] MEDS ORDERED: SODIUM CHLORIDE 0.9% 1,000 ML IV ONE (15:45)
[2018-10-13 16:16] LABS: BASOPHILS % 0.6 % (0.0-2.0); CLARITY URINE CLEAR (CLEAR); COLOR URINE YELLOW (YELLOW); EOSINOPHILS % 1.5 % (0.0-5.0); HEMATOCRIT. 43.3 % (42.0-52.0); KETONES URINE NEGATIVE (NEGATIVE); LEUKOCYTE ESTERASE URINE NEGATIVE (NEGATIVE); LYMPHOCYTES % 14.9 % (20.0-50.0); MEAN CORPUSCULAR HEMOGLOBIN 26.6 pg (28.0-32.0); MEAN CORPUSCULAR VOLUME 82.6 fL (80.0-94.0); MEAN PLATELET VOLUME 7.9 fl (7.4-10.4); MONOCYTES % 9.2 % (2.0-8.0); NEUTROPHILS % 73.8 % (40.0-76.0); NITRITE URINE NEGATIVE (NEGATIVE); OCCULT BLOOD URINE 1+ (NEGATIVE); PH URINE 5.5 (4.5-8.0); PLATELET 349 x1000/uL (130-400); PROTEIN URINE NEGATIVE (NEGATIVE); RED BLOOD CELL COUNT 5.25 mill/uL (4.7-6.1); RED CELL DISTRIBUTION WIDTH 15.6 % (11.6-14.6); SPECIFIC GRAVITY URINE 1.025 (1.005-1.030); UROBILINOGEN URINE 0.2 E.U./dL (0.2-1.0)
[2018-10-13 16:18] LABS: CHLORIDE 90 mEq/L (98-107)
[2018-10-13 16:23] LABS: ETHANOL BLOOD < 10 mg/dL
[2018-10-13 16:28] LABS: BETA HYDROXYBUTYRATE 0.6 mMol/L (0.0-0.3)
[2018-10-13 16:30] LABS: *AMPHETAMINES SCREEN URINE NEGATIVE (NEGATIVE); *BARBITURATES SCREEN URINE NEGATIVE (NEGATIVE); *BENZODIAZEPINES SCREEN URINE NEGATIVE (NEGATIVE); *COCAINE SCREEN URINE NEGATIVE (NEGATIVE)
[2018-10-13 16:31] LABS: CANNABINOID URINE SCREEN PRESUMTIVE POSITIVE (NEGATIVE); METHADONE URINE SCREEN NEGATIVE (NEGATIVE); OPIATES URINE SCREEN NEGATIVE (NEGATIVE); PHENCYCLIDINE URINE SCREEN NEGATIVE (NEGATIVE)
[2018-10-13] MEDS ORDERED: INSULIN REGULAR (HUMULIN R) 300UNITS/3ML SUBCUT ONE (17:00)
[2018-10-13] MEDS ORDERED: GUAIFENESIN 200MG/10ML SUGAR FREE UDC PO PRN (18:30)
[2018-10-13] MEDS ORDERED: HYDROCODONE/ACETAMINOPHEN 5/325MG TABLET PO PRN (18:30)
[2018-10-13] MEDS ORDERED: IPRATROPIUM/ALBUTEROL 0.5-3(2.5)MG/3ML NEB INH PRN (18:30)
[2018-10-13] MEDS ORDERED: DIPHENHYDRAMINE 50MG/ML VIAL IV PRN (18:30)
[2018-10-13] MEDS ORDERED: CLONIDINE 0.1MG TABLET PO PRN (18:30)
[2018-10-13] MEDS ORDERED: ONDANSETRON HCL 4MG/2ML INJ IV PRN (18:30)
[2018-10-13] MEDS ORDERED: DOCUSATE SODIUM 100MG CAPSULE PO PRN (18:30)
[2018-10-13] MEDS ORDERED: MAGNESIUM/ALUMINUM HYDROXIDE/SIMETHICONE 30ML UDC PO PRN (18:30)
[2018-10-13] MEDS ORDERED: ACETAMINOPHEN 325MG TABLET PO PRN (18:30)
[2018-10-13 19:31] LABS: PHOSPHORUS 4.1 mg/dL (2.5-4.9)
[2018-10-13] MEDS ORDERED: INSULIN REGULAR (HUMULIN R) 300UNITS/3ML SUBCUT SCH (22:00)
[2018-10-13] MEDS: SODIUM CHLORIDE 0.9% 1,000 ML IV SCH (23:13)
[2018-10-13 23:22] LABS: CREATINE KINASE MB FRACTION 2.9 ng/mL (0.5-3.6)
[2018-10-13 23:30] VITALS: BP 117/64
[2018-10-14] VITALS (7 sets, daily range): BP systolic 106–135; BP diastolic 62–67
[2018-10-14] MEDS ORDERED: DEXTROSE 50% WATER 50ML SYRINGE IV PRN (01:15)
[2018-10-14] MEDS: SODIUM CHLORIDE 0.9% 1,000 ML IV SCH ×2 (05:42→11:50)
[2018-10-14] MEDS: BLOOD SUGAR DIAGNOSTIC STRIP TEST SCH ×4 (05:48→20:49)
[2018-10-14] MEDS: INSULIN LISPRO 100 UNITS/ML SUBCUT SCH ×4 (05:50→21:48)
[2018-10-14 06:22] LABS: HEMATOCRIT. 39.1 % (42.0-52.0); HEMOGLOBIN. 13.1 g/dL (14.0-18.0); MEAN CORPUSCULAR HEMOGLOBIN 26.8 pg (28.0-32.0); MEAN CORPUSCULAR VOLUME 80.1 fL (80.0-94.0); MEAN PLATELET VOLUME 7.7 fl (7.4-10.4); PLATELET 339 x1000/uL (130-400); RED BLOOD CELL COUNT 4.89 mill/uL (4.7-6.1); RED CELL DISTRIBUTION WIDTH 15.3 % (11.6-14.6)
[2018-10-14 06:35] LABS: CHLORIDE 107 mEq/L (98-107)
[2018-10-14 06:53] LABS: CREATINE KINASE 146 IU/L (39-308); HDL CHOLESTEROL 42 mg/dL (40-59)
[2018-10-14 06:54] LABS: LDL CHOLESTEROL 52 mg/dL (5-100)
[2018-10-14 07:03] LABS: CREATINE KINASE MB FRACTION 2.3 ng/mL (0.5-3.6)
[2018-10-14] MEDS ORDERED: ENOXAPARIN 40MG/0.4ML SYR SUBCUT SCH (09:00)
[2018-10-14 11:38] LABS: PLATELET ESTIMATE NORMAL
[2018-10-14] MEDS ORDERED: DOCUSATE SODIUM 100MG CAPSULE PO PRN (13:45)
[2018-10-14] MEDS ORDERED: ACETAMINOPHEN 325MG TABLET PO PRN (13:45)
[2018-10-14] MEDS ORDERED: HYDROCODONE/ACETAMINOPHEN 5/325MG TABLET PO PRN (13:45)
[2018-10-14] MEDS ORDERED: DIPHENHYDRAMINE 50MG/ML VIAL IV PRN (13:45)
[2018-10-14] MEDS ORDERED: CLONIDINE 0.1MG TABLET PO PRN (13:45)
[2018-10-14] MEDS ORDERED: IPRATROPIUM/ALBUTEROL 0.5-3(2.5)MG/3ML NEB INH PRN (13:45)
[2018-10-14] MEDS ORDERED: GUAIFENESIN 200MG/10ML SUGAR FREE UDC PO PRN (13:45)
[2018-10-14] MEDS ORDERED: ONDANSETRON HCL 4MG/2ML INJ IV PRN (13:45)
[2018-10-14] MEDS ORDERED: MAGNESIUM/ALUMINUM HYDROXIDE/SIMETHICONE 30ML UDC PO PRN (13:45)
[2018-10-14] MEDS: ENOXAPARIN 40MG/0.4ML SYR SUBCUT SCH (14:54)
[2018-10-15] VITALS: BP 113/63
[2018-10-15 04:00] VITALS: BP 106/56
[2018-10-15] MEDS: BLOOD SUGAR DIAGNOSTIC STRIP TEST SCH ×4 (06:38→20:03)
[2018-10-15] MEDS: INSULIN LISPRO 100 UNITS/ML SUBCUT SCH ×4 (06:40→21:26)
[2018-10-15 06:42] LABS: BASOPHILS % 0.5 % (0.0-2.0); EOSINOPHILS % 1.9 % (0.0-5.0); HEMATOCRIT. 36.5 % (42.0-52.0); HEMOGLOBIN. 11.8 g/dL (14.0-18.0); MEAN CORPUSCULAR HEMOGLOBIN 26.1 pg (28.0-32.0); MEAN CORPUSCULAR VOLUME 80.6 fL (80.0-94.0); MEAN PLATELET VOLUME 7.9 fl (7.4-10.4); MONOCYTES % 10.8 % (2.0-8.0); NEUTROPHILS % 62.8 % (40.0-76.0); PLATELET 316 x1000/uL (130-400); RED BLOOD CELL COUNT 4.53 mill/uL (4.7-6.1); RED CELL DISTRIBUTION WIDTH 15.6 % (11.6-14.6)
[2018-10-15 07:30] LABS: CHLORIDE 100 mEq/L (98-107)
[2018-10-15 07:39] LABS: PHOSPHORUS 3.1 mg/dL (2.5-4.9)
[2018-10-15 07:42] LABS: CREATINE KINASE 102 IU/L (39-308)
[2018-10-15 08:00] VITALS: BP 126/79
[2018-10-15] MEDS: ENOXAPARIN 40MG/0.4ML SYR SUBCUT SCH (08:39)
[2018-10-15] MEDS: CLOPIDOGREL 75MG TABLET PO SCH (11:30)
[2018-10-15] MEDS: CARVEDILOL 6.25 MG TABLET PO SCH ×2 (11:30→20:56)
[2018-10-15] MEDS: ASPIRIN 81MG TABLET PO SCH (11:30)
[2018-10-15 11:43] VITALS: BP 123/86
[2018-10-15] MEDS ORDERED: CHLORPROMAZINE HCL 10 MG TABLET PO SCH (12:30)
[2018-10-15] MEDS ORDERED: AMIT25TA9 PO (13:15)
[2018-10-15] MEDS ORDERED: GABA100C PO (13:16)
[2018-10-15] MEDS ORDERED: ATOR20TA65 MT (13:17)
[2018-10-15 14:22] LABS: SODIUM URINE RANDOM 34 mEq/L
[2018-10-15 16:00] VITALS: BP 105/74
[2018-10-15] MEDS: INSULIN GLARGINE UD 100 UNITS/ML SYR SUBCUT SCH ×2 (18:12→21:27)
[2018-10-15 20:00] VITALS: BP 108/77
[2018-10-15] MEDS ORDERED: TAMSULOSIN HCL 0.4MG SR CAPSULE PO SCH (21:00)
[2018-10-15] MEDS ORDERED: ATORVASTATIN CALCIUM 20MG TABLET PO SCH (21:00)
[2018-10-15] MEDS: FUROSEMIDE 40MG TABLET PO SCH (21:24)
[2018-10-15] MEDS ORDERED: INSULIN GLARGINE UD 100 UNITS/ML SYR SUBCUT SCH (22:00)
[2018-10-16] VITALS: BP 105/70
[2018-10-16 04:00] VITALS: BP 107/76
[2018-10-16] MEDS: INSULIN LISPRO 100 UNITS/ML SUBCUT SCH ×2 (06:07→12:12)
[2018-10-16] MEDS: BLOOD SUGAR DIAGNOSTIC STRIP TEST SCH ×2 (06:07→12:08)
[2018-10-16 06:35] LABS: EOSINOPHILS % 3.2 % (0.0-5.0); HEMATOCRIT. 37.9 % (42.0-52.0); HEMOGLOBIN. 12.5 g/dL (14.0-18.0); LYMPHOCYTES % 45.1 % (20.0-50.0); MEAN CORPUSCULAR HEMOGLOBIN 26.7 pg (28.0-32.0); MEAN CORPUSCULAR VOLUME 80.8 fL (80.0-94.0); MEAN PLATELET VOLUME 7.7 fl (7.4-10.4); MONOCYTES % 10.2 % (2.0-8.0); NEUTROPHILS % 40.5 % (40.0-76.0); PLATELET 347 x1000/uL (130-400); RED BLOOD CELL COUNT 4.69 mill/uL (4.7-6.1); RED CELL DISTRIBUTION WIDTH 15.5 % (11.6-14.6)
[2018-10-16 07:09] LABS: CHLORIDE 105 mEq/L (98-107)
[2018-10-16 07:14] LABS: PHOSPHORUS 3.5 mg/dL (2.5-4.9)
[2018-10-16 07:47] VITALS: BP 94/63
[2018-10-16] MEDS: CARVEDILOL 6.25 MG TABLET PO SCH (08:33)
[2018-10-16] MEDS: FUROSEMIDE 40MG TABLET PO SCH (09:14)
[2018-10-16] MEDS: CLOPIDOGREL 75MG TABLET PO SCH (09:14)
[2018-10-16] MEDS: ENOXAPARIN 40MG/0.4ML SYR SUBCUT SCH (09:14)
[2018-10-16] MEDS: ASPIRIN 81MG TABLET PO SCH (09:14)
[2018-10-16] MEDS: INSULIN GLARGINE UD 100 UNITS/ML SYR SUBCUT SCH (10:57)
[2018-10-16 12:00] VITALS: BP 103/72
[2018-10-16] MEDS ORDERED: ASPI-1160 PO (12:03)
[2018-10-16] MEDS ORDERED: COR6 PO (12:03)
[2018-10-16 14:20] VITALS: BP 103/72
[2018-10-16 15:50] VITALS: BP 118/72
== END 2018-10-16 16:28 | disposition home or self-care (01) | DRG 623 ==
LOC: ER 14:03 → UNDOADMIN 17:52 → 8WST 17:52 → ENRESERV 20:26
PROVIDERS: ADMIT Internal Medicine; ATTEND Internal Medicine
PROC: 0JBQ0ZZ Excision of Right Foot Subcutaneous Tissue and Fascia, Open Approach (ICD-10-PCS; principal; 2018-10-14)
PROC: 0HDMXZZ Extraction of Right Foot Skin, External Approach (ICD-10-PCS; 2018-10-14)
DX: E11.621 Type 2 diabetes mellitus with foot ulcer (principal); E87.1 Hypo-osmolality and hyponatremia; I13.0 Hypertensive heart and chronic kidney disease with heart failure and stage 1 through stage 4 chronic kidney disease, or unspecified chronic kidney disease; E44.1 Mild protein-calorie malnutrition; L97.519 Non-pressure chronic ulcer of other part of right foot with unspecified severity; N17.9 Acute kidney failure, unspecified; E11.65 Type 2 diabetes mellitus with hyperglycemia; N18.2 Chronic kidney disease, stage 2 (mild); E11.51 Type 2 diabetes mellitus with diabetic peripheral angiopathy without gangrene; R74.0 Nonspecific elevation of levels of transaminase and lactic acid dehydrogenase [LDH]; E11.42 Type 2 diabetes mellitus with diabetic polyneuropathy; I50.9 Heart failure, unspecified; I25.10 Atherosclerotic heart disease of native coronary artery without angina pectoris; F32.9 Major depressive disorder, single episode, unspecified; F17.210 Nicotine dependence, cigarettes, uncomplicated; I45.81 Long QT syndrome; E11.22 Type 2 diabetes mellitus with diabetic chronic kidney disease; J44.9 Chronic obstructive pulmonary disease, unspecified; F14.10 Cocaine abuse, uncomplicated; E78.5 Hyperlipidemia, unspecified; L85.1 Acquired keratosis [keratoderma] palmaris et plantaris; F12.90 Cannabis use, unspecified, uncomplicated; R07.9 Chest pain, unspecified; I25.5 Ischemic cardiomyopathy; R55 Syncope and collapse; Z86.73 Personal history of transient ischemic attack (TIA), and cerebral infarction without residual deficits; I25.2 Old myocardial infarction; Z93.3 Colostomy status; Z79.82 Long term (current) use of aspirin; Z79.4 Long term (current) use of insulin; Z79.899 Other long term (current) drug therapy; Z89.421 Acquired absence of other right toe(s); Z95.5 Presence of coronary angioplasty implant and graft; Z82.49 Family history of ischemic heart disease and other diseases of the circulatory system; Z83.3 Family history of diabetes mellitus; Z86.59 Personal history of other mental and behavioral disorders; Z87.19 Personal history of other diseases of the digestive system; Z79.01 Long term (current) use of anticoagulants; Z88.0 Allergy status to penicillin; Z82.0 Family history of epilepsy and other diseases of the nervous system; Z68.25 Body mass index [BMI] 25.0-25.9, adult
CPT/HCPCS: 36415; 71045; 73630; 80048; 80061; 80165; 80185; 80305; 80320; 82010; 82533; 82550; 82553; 82962; 83036; 83605; 83735; 83930; 83935; 84100; 84300; 84443; 84484; 92610; 93005; 93306; 93880; 93970; 96374; 97110; 97116; 97162; 97166; 99285; J1650; J1815; J3370; J7030; G0480

== ENCOUNTER 2018-12-01 18:20 | Emergency (ER) | payer MEDICARE, MEDICAID ==
[~2018-12-01] VITALS: Ht 175.3 cm; Wt 84.0 kg
[~2018-12-01 18:20] MED LIST changes: +AMIT25TA9 PO; -ASA5EC PO; +ASPI-1160 PO; +ATOR20TA65 MT; -CLOP75TA16 PO; +CLOP75TA4 PO; -COR3 PO; +COR6 PO; +GABA100C PO; -LEVO750T46 MT
[2018-12-01 18:40] VITALS: BP 128/84
== END 2018-12-01 22:13 | disposition left against medical advice (07) ==
LOC: ER 18:20
DX: M79.671 Pain in right foot (principal); Z53.21 Procedure and treatment not carried out due to patient leaving prior to being seen by health care provider

== ENCOUNTER 2018-12-02 | Inpatient (IN) | payer MEDICARE, MEDICAID ==
[~2018-12-02] VITALS: Ht 175.3 cm; Wt 77.6 kg
[2018-12-02] MEDS ORDERED: MORPHINE SULFATE 4 MG/ML CPJ (NOT FOR IM USE) IV STA (01:32)
[2018-12-02] MEDS ORDERED: ONDANSETRON HCL 4MG/2ML INJ IV STA (01:32)
[2018-12-02] MEDS ORDERED: VANCOMYCIN 1 G PREMIX 200 ML IV ONE (01:45)
[2018-12-02] MEDS ORDERED: CLINDAMYCIN 600 MG in DEXTROSE 5% WATER 50 ML IV ONE (01:45)
[2018-12-02] MEDS ORDERED: GENTAMICIN 120MG PREMIX 100 ML IV SCH (01:45)
[2018-12-02] MEDS ORDERED: SODIUM CHLORIDE 0.9% 1000ML BAG (SEPSIS BOLUS) IV ONE (01:45)
[2018-12-02 01:55] LABS: BASOPHILS % 0.4 % (0.0-2.0); EOSINOPHILS % 0.2 % (0.0-5.0); HEMATOCRIT. 35.1 % (42.0-52.0); HEMOGLOBIN. 11.4 g/dL (14.0-18.0); LYMPHOCYTES % 9.5 % (20.0-50.0); MEAN CORPUSCULAR VOLUME 83.3 fL (80.0-94.0); MEAN PLATELET VOLUME 8.4 fl (7.4-10.4); MONOCYTES % 10.7 % (2.0-8.0); NEUTROPHILS % 79.2 % (40.0-76.0); PLATELET 359 x1000/uL (130-400); RED BLOOD CELL COUNT 4.21 mill/uL (4.7-6.1); RED CELL DISTRIBUTION WIDTH 17.5 % (11.6-14.6)
[2018-12-02] MEDS ORDERED: CLINDAMYCIN 600MG PREMIX 50 ML IV SCH (02:00)
[2018-12-02 03:02] LABS: CHLORIDE 98 mEq/L (98-107)
[2018-12-02 03:06] LABS: PROTHROMBIN TIME 10.5 sec (9.6-11.0)
[2018-12-02] MEDS ORDERED: INSULIN REGULAR (HUMULIN R) 300UNITS/3ML SUBCUT ONE (04:00)
[2018-12-02] MEDS ORDERED: CLONIDINE 0.1MG TABLET PO PRN (10:00)
[2018-12-02] MEDS ORDERED: DOCUSATE SODIUM 100MG CAPSULE PO PRN (10:00)
[2018-12-02] MEDS ORDERED: ACETAMINOPHEN 325MG TABLET PO PRN (10:00)
[2018-12-02] MEDS ORDERED: PIPERACILLIN/TAZ 3.375G PREMIX 50 ML IV SCH (10:00)
[2018-12-02] MEDS ORDERED: IPRATROPIUM/ALBUTEROL 0.5-3(2.5)MG/3ML NEB INH PRN (10:00)
[2018-12-02] MEDS ORDERED: ONDANSETRON HCL 4MG/2ML INJ IV PRN (10:00)
[2018-12-02 12:00] VITALS: BP 138/84
[2018-12-02] MEDS ORDERED: CEFTRIAXONE 1 G PREMIX 50 ML IV SCH (12:00)
[2018-12-02] MEDS ORDERED: DEXTROSE 50% WATER 50ML SYRINGE IV PRN (12:45)
[2018-12-02] MEDS: CLOPIDOGREL 75MG TABLET PO SCH (13:46)
[2018-12-02] MEDS: FUROSEMIDE 40MG/4ML VIAL IV SCH (13:48)
[2018-12-02] MEDS: HYDROCODONE/ACETAMINOPHEN 5/325MG TABLET PO PRN (13:48)
[2018-12-02] MEDS: LOSARTAN POTASSIUM 25 MG TABLET PO SCH (13:48)
[2018-12-02 14:02] VITALS: BP 113/84
[2018-12-02] MEDS: MORPHINE SULFATE 4 MG/ML CPJ (NOT FOR IM USE) IV NR ×3 (14:30→14:47)
[2018-12-02 16:00] VITALS: BP 135/82
[2018-12-02] MEDS: BLOOD SUGAR DIAGNOSTIC STRIP TEST SCH ×2 (16:22→20:55)
[2018-12-02 16:30] LABS: *AMPHETAMINES SCREEN URINE NEGATIVE (NEGATIVE); *BARBITURATES SCREEN URINE NEGATIVE (NEGATIVE); *BENZODIAZEPINES SCREEN URINE NEGATIVE (NEGATIVE); *COCAINE SCREEN URINE NEGATIVE (NEGATIVE); METHADONE URINE SCREEN NEGATIVE (NEGATIVE); OPIATES URINE SCREEN PRESUMTIVE POSITIVE (NEGATIVE)
[2018-12-02 16:31] LABS: CANNABINOID URINE SCREEN NEGATIVE (NEGATIVE); PHENCYCLIDINE URINE SCREEN NEGATIVE (NEGATIVE)
[2018-12-02] MEDS: INSULIN LISPRO 100 UNITS/ML SUBCUT SCH ×2 (17:24→21:47)
[2018-12-02] MEDS: METRONIDAZOLE 500 MG PREMIX 100 ML IV SCH ×2 (17:56→20:00)
[2018-12-02] MEDS: DOCUSATE SODIUM 100MG CAPSULE PO SCH (18:18)
[2018-12-02] MEDS: GABAPENTIN 100MG CAPSULE PO SCH ×2 (18:18→21:06)
[2018-12-02] MEDS ORDERED: INSULIN GLARGINE UD 100 UNITS/ML SYR SUBCUT NR (18:30)
[2018-12-02 20:00] VITALS: BP 119/77
[2018-12-02] MEDS: CARVEDILOL 6.25 MG TABLET PO SCH (20:54)
[2018-12-02] MEDS: AMITRIPTYLINE 25MG TABLET PO SCH (20:54)
[2018-12-02] MEDS: TAMSULOSIN HCL 0.4MG SR CAPSULE PO SCH (20:54)
[2018-12-02] MEDS ORDERED: INSULIN GLARGINE UD 100 UNITS/ML SYR SUBCUT SCH (22:00)
[2018-12-02] MEDS ORDERED: INSULIN LISPRO 100 UNITS/ML SUBCUT NR (22:45)
[2018-12-03] VITALS: BP 99/59
[2018-12-03] MEDS: METRONIDAZOLE 500 MG PREMIX 100 ML IV SCH ×3 (03:22→18:00)
[2018-12-03 04:00] VITALS: BP 91/55
[2018-12-03] MEDS: GABAPENTIN 100MG CAPSULE PO SCH ×3 (06:36→21:19)
[2018-12-03] MEDS: BLOOD SUGAR DIAGNOSTIC STRIP TEST SCH ×4 (06:36→21:18)
[2018-12-03 06:50] LABS: BASOPHILS % 0.6 % (0.0-2.0); EOSINOPHILS % 1.9 % (0.0-5.0); HEMATOCRIT. 30.8 % (42.0-52.0); HEMOGLOBIN. 10.2 g/dL (14.0-18.0); LYMPHOCYTES % 16.1 % (20.0-50.0); MEAN CORPUSCULAR HEMOGLOBIN 26.9 pg (28.0-32.0); MEAN CORPUSCULAR VOLUME 81.2 fL (80.0-94.0); MEAN PLATELET VOLUME 7.4 fl (7.4-10.4); MONOCYTES % 12.9 % (2.0-8.0); NEUTROPHILS % 68.5 % (40.0-76.0); PLATELET 312 x1000/uL (130-400); RED BLOOD CELL COUNT 3.79 mill/uL (4.7-6.1); RED CELL DISTRIBUTION WIDTH 17.1 % (11.6-14.6)
[2018-12-03] MEDS: INSULIN LISPRO 100 UNITS/ML SUBCUT SCH ×4 (07:01→22:19)
[2018-12-03 07:06] LABS: PHOSPHORUS 3.6 mg/dL (2.5-4.9)
[2018-12-03 08:00] VITALS: BP 113/79
[2018-12-03] MEDS: ASPIRIN 81MG TABLET PO SCH (09:00)
[2018-12-03] MEDS: CLOPIDOGREL 75MG TABLET PO SCH (09:00)
[2018-12-03] MEDS: FUROSEMIDE 40MG/4ML VIAL IV SCH (09:02)
[2018-12-03] MEDS: DOCUSATE SODIUM 100MG CAPSULE PO SCH ×2 (09:04→18:27)
[2018-12-03] MEDS: ATORVASTATIN CALCIUM 20MG TABLET PO SCH (09:05)
[2018-12-03] MEDS: LOSARTAN POTASSIUM 25 MG TABLET PO SCH (09:05)
[2018-12-03] MEDS: CARVEDILOL 6.25 MG TABLET PO SCH ×2 (09:05→21:00)
[2018-12-03] MEDS: HYDROMORPHONE HCL/PF 2MG/ML CPJ IV PRN (10:01)
[2018-12-03 12:00] VITALS: BP 123/68
[2018-12-03] MEDS: CEFTRIAXONE 1 G PREMIX 50 ML IV SCH (14:55)
[2018-12-03 16:00] VITALS: BP 110/68
[2018-12-03] MEDS: HYDROCODONE/ACETAMINOPHEN 5/325MG TABLET PO PRN (16:45)
[2018-12-03 20:00] VITALS: BP 104/64
[2018-12-03] MEDS: AMITRIPTYLINE 25MG TABLET PO SCH (21:19)
[2018-12-03] MEDS: TAMSULOSIN HCL 0.4MG SR CAPSULE PO SCH (21:19)
[2018-12-03] MEDS ORDERED: INSULIN GLARGINE UD 100 UNITS/ML SYR SUBCUT NR (22:00)
[2018-12-03] MEDS ORDERED: INSULIN GLARGINE UD 100 UNITS/ML SYR SUBCUT SCH (22:00)
[2018-12-04] VITALS: BP 120/76
[2018-12-04] MEDS ORDERED: SODIUM CHLORIDE 0.9% 1,000 ML IV SCH
[2018-12-04] MEDS: CEFTRIAXONE 1 G PREMIX 50 ML IV SCH ×2 (01:13→12:21)
[2018-12-04] MEDS: METRONIDAZOLE 500 MG PREMIX 100 ML IV SCH ×2 (02:43→12:21)
[2018-12-04 05:56] LABS: CHLORIDE 99 mEq/L (98-107)
[2018-12-04] MEDS: GABAPENTIN 100MG CAPSULE PO SCH ×3 (06:00→21:35)
[2018-12-04 06:23] LABS: BASOPHILS % 0.6 % (0.0-2.0); EOSINOPHILS % 2.3 % (0.0-5.0); HEMOGLOBIN. 11.2 g/dL (14.0-18.0); LYMPHOCYTES % 17.9 % (20.0-50.0); MEAN CORPUSCULAR HEMOGLOBIN 26.8 pg (28.0-32.0); MEAN CORPUSCULAR VOLUME 81.5 fL (80.0-94.0); MEAN PLATELET VOLUME 7.5 fl (7.4-10.4); MONOCYTES % 13.6 % (2.0-8.0); NEUTROPHILS % 65.6 % (40.0-76.0); PLATELET 358 x1000/uL (130-400); RED BLOOD CELL COUNT 4.17 mill/uL (4.7-6.1); RED CELL DISTRIBUTION WIDTH 17.5 % (11.6-14.6)
[2018-12-04] MEDS: BLOOD SUGAR DIAGNOSTIC STRIP TEST SCH ×4 (06:29→21:35)
[2018-12-04] MEDS: INSULIN LISPRO 100 UNITS/ML SUBCUT SCH ×4 (06:42→22:06)
[2018-12-04 08:00] VITALS: BP 111/61
[2018-12-04] MEDS ORDERED: LIDOCAINE HCL 1% 20ML VIAL (Pyxis) INJ ONE (08:36)
[2018-12-04] MEDS ORDERED: IODIXANOL 320MG/ML 100 ML BOTTLE IV ONE (08:36)
[2018-12-04] MEDS: FUROSEMIDE 40MG/4ML VIAL IV SCH (08:50)
[2018-12-04] MEDS: ATORVASTATIN CALCIUM 20MG TABLET PO SCH (08:51)
[2018-12-04] MEDS: LOSARTAN POTASSIUM 25 MG TABLET PO SCH (08:51)
[2018-12-04] MEDS: ASPIRIN 81MG TABLET PO SCH (08:51)
[2018-12-04] MEDS: CLOPIDOGREL 75MG TABLET PO SCH (08:51)
[2018-12-04] MEDS: CARVEDILOL 6.25 MG TABLET PO SCH ×2 (08:51→21:35)
[2018-12-04] MEDS: DOCUSATE SODIUM 100MG CAPSULE PO SCH ×2 (08:51→18:16)
[2018-12-04 12:17] VITALS: BP 127/82
[2018-12-04 15:30] VITALS: BP 108/75
[2018-12-04] MEDS: HYDROMORPHONE HCL/PF 2MG/ML CPJ IV PRN ×2 (16:59→21:35)
[2018-12-04] MEDS: LEVOFLOXACIN 750MG PREMIX 150 ML IV SCH (18:16)
[2018-12-04 20:00] VITALS: BP 134/89
[2018-12-04] MEDS: AMITRIPTYLINE 25MG TABLET PO SCH (21:34)
[2018-12-04] MEDS: TAMSULOSIN HCL 0.4MG SR CAPSULE PO SCH (21:34)
[2018-12-05] VITALS: BP 128/77
[2018-12-05 04:00] VITALS: BP 115/70
[2018-12-05] MEDS: GABAPENTIN 100MG CAPSULE PO SCH ×3 (06:37→21:51)
[2018-12-05] MEDS: BLOOD SUGAR DIAGNOSTIC STRIP TEST SCH ×4 (06:57→21:51)
[2018-12-05 07:16] LABS: BASOPHILS % 0.7 % (0.0-2.0); EOSINOPHILS % 3.4 % (0.0-5.0); HEMATOCRIT. 32.1 % (42.0-52.0); HEMOGLOBIN. 10.6 g/dL (14.0-18.0); MEAN CORPUSCULAR HEMOGLOBIN 27.1 pg (28.0-32.0); MEAN PLATELET VOLUME 7.3 fl (7.4-10.4); MONOCYTES % 14.6 % (2.0-8.0); NEUTROPHILS % 58.3 % (40.0-76.0); PLATELET 350 x1000/uL (130-400); RED BLOOD CELL COUNT 3.92 mill/uL (4.7-6.1); RED CELL DISTRIBUTION WIDTH 17.2 % (11.6-14.6)
[2018-12-05] MEDS: INSULIN LISPRO 100 UNITS/ML SUBCUT SCH ×4 (07:16→21:52)
[2018-12-05 07:35] LABS: CHLORIDE 101 mEq/L (98-107)
[2018-12-05 07:48] LABS: PHOSPHORUS 3.5 mg/dL (2.5-4.9)
[2018-12-05 08:00] VITALS: BP 120/78
[2018-12-05] MEDS: DOCUSATE SODIUM 100MG CAPSULE PO SCH ×2 (08:15→17:18)
[2018-12-05] MEDS: CLOPIDOGREL 75MG TABLET PO SCH (08:16)
[2018-12-05] MEDS: CARVEDILOL 6.25 MG TABLET PO SCH ×2 (08:16→21:52)
[2018-12-05] MEDS: ATORVASTATIN CALCIUM 20MG TABLET PO SCH (08:16)
[2018-12-05] MEDS: ASPIRIN 81MG TABLET PO SCH (08:16)
[2018-12-05 12:00] VITALS: BP 111/71
[2018-12-05] MEDS: HYDROMORPHONE HCL/PF 2MG/ML CPJ IV PRN ×2 (13:33→22:09)
[2018-12-05 15:53] VITALS: BP 130/91
[2018-12-05] MEDS: LEVOFLOXACIN 750MG PREMIX 150 ML IV SCH (17:18)
[2018-12-05 20:00] VITALS: BP 118/79
[2018-12-05] MEDS: AMITRIPTYLINE 25MG TABLET PO SCH (21:51)
[2018-12-05] MEDS: TAMSULOSIN HCL 0.4MG SR CAPSULE PO SCH (21:51)
[2018-12-05] MEDS: INSULIN GLARGINE UD 100 UNITS/ML SYR SUBCUT SCH (21:53)
[2018-12-06] VITALS: BP 112/75
[2018-12-06 04:00] VITALS: BP 90/57
[2018-12-06] MEDS: GABAPENTIN 100MG CAPSULE PO SCH ×3 (06:03→21:19)
[2018-12-06] MEDS: BLOOD SUGAR DIAGNOSTIC STRIP TEST SCH ×4 (06:04→21:15)
[2018-12-06] MEDS: INSULIN LISPRO 100 UNITS/ML SUBCUT SCH ×4 (06:04→21:18)
[2018-12-06 06:57] LABS: BASOPHILS % 0.9 % (0.0-2.0); EOSINOPHILS % 3.7 % (0.0-5.0); HEMATOCRIT. 35.1 % (42.0-52.0); HEMOGLOBIN. 11.5 g/dL (14.0-18.0); LYMPHOCYTES % 28.5 % (20.0-50.0); MEAN CORPUSCULAR HEMOGLOBIN 27.1 pg (28.0-32.0); MEAN CORPUSCULAR VOLUME 82.4 fL (80.0-94.0); MEAN PLATELET VOLUME 7.2 fl (7.4-10.4); MONOCYTES % 13.1 % (2.0-8.0); NEUTROPHILS % 53.8 % (40.0-76.0); PLATELET 391 x1000/uL (130-400); RED BLOOD CELL COUNT 4.26 mill/uL (4.7-6.1); RED CELL DISTRIBUTION WIDTH 17.1 % (11.6-14.6)
[2018-12-06 07:18] LABS: CHLORIDE 99 mEq/L (98-107)
[2018-12-06 07:29] LABS: PHOSPHORUS 3.1 mg/dL (2.5-4.9)
[2018-12-06 08:00] VITALS: BP_SYST 102; BP_SYST 98; BP_DIAS 65
[2018-12-06] MEDS: DOCUSATE SODIUM 100MG CAPSULE PO SCH ×2 (10:12→17:48)
[2018-12-06] MEDS: ATORVASTATIN CALCIUM 20MG TABLET PO SCH (10:12)
[2018-12-06] MEDS: CLOPIDOGREL 75MG TABLET PO SCH (10:12)
[2018-12-06] MEDS: ASPIRIN 81MG TABLET PO SCH (10:12)
[2018-12-06] MEDS: CARVEDILOL 6.25 MG TABLET PO SCH ×2 (10:16→21:15)
[2018-12-06] MEDS: INSULIN GLARGINE UD 100 UNITS/ML SYR SUBCUT SCH ×2 (10:17→21:19)
[2018-12-06] MEDS: LEVOFLOXACIN 250MG TABLET PO SCH (11:42)
[2018-12-06 12:00] VITALS: BP 113/96
[2018-12-06 16:00] VITALS: BP 101/61
[2018-12-06 20:00] VITALS: BP 126/87
[2018-12-06] MEDS: TAMSULOSIN HCL 0.4MG SR CAPSULE PO SCH (21:14)
[2018-12-06] MEDS: AMITRIPTYLINE 25MG TABLET PO SCH (21:15)
[2018-12-07] VITALS (7 sets, daily range): BP systolic 98–132; BP diastolic 68–89
[2018-12-07] MEDS: HYDROMORPHONE HCL/PF 2MG/ML CPJ IV PRN ×4 (00:27→21:06)
[2018-12-07 06:02] LABS: BASOPHILS % 0.9 % (0.0-2.0); EOSINOPHILS % 3.3 % (0.0-5.0); HEMATOCRIT. 30.6 % (42.0-52.0); HEMOGLOBIN. 10.2 g/dL (14.0-18.0); LYMPHOCYTES % 26.7 % (20.0-50.0); MEAN CORPUSCULAR HEMOGLOBIN 27.4 pg (28.0-32.0); MEAN CORPUSCULAR VOLUME 82.1 fL (80.0-94.0); MEAN PLATELET VOLUME 7.1 fl (7.4-10.4); MONOCYTES % 12.9 % (2.0-8.0); NEUTROPHILS % 56.2 % (40.0-76.0); PLATELET 376 x1000/uL (130-400); RED BLOOD CELL COUNT 3.73 mill/uL (4.7-6.1); RED CELL DISTRIBUTION WIDTH 16.9 % (11.6-14.6)
[2018-12-07] MEDS: GABAPENTIN 100MG CAPSULE PO SCH ×3 (06:14→21:28)
[2018-12-07] MEDS: BLOOD SUGAR DIAGNOSTIC STRIP TEST SCH ×4 (06:15→21:00)
[2018-12-07] MEDS: INSULIN LISPRO 100 UNITS/ML SUBCUT SCH ×4 (06:15→21:27)
[2018-12-07 06:25] LABS: CHLORIDE 104 mEq/L (98-107)
[2018-12-07 06:35] LABS: PHOSPHORUS 3.4 mg/dL (2.5-4.9)
[2018-12-07] MEDS: ASPIRIN 81MG TABLET PO SCH (09:00)
[2018-12-07] MEDS: DOCUSATE SODIUM 100MG CAPSULE PO SCH ×2 (09:00→17:36)
[2018-12-07] MEDS: CLOPIDOGREL 75MG TABLET PO SCH (09:00)
[2018-12-07] MEDS: CARVEDILOL 6.25 MG TABLET PO SCH ×2 (09:00→21:28)
[2018-12-07] MEDS: ATORVASTATIN CALCIUM 20MG TABLET PO SCH (09:00)
[2018-12-07] MEDS ORDERED: IODIXANOL 320MG/ML 100 ML BOTTLE IV ONE (09:18)
[2018-12-07] MEDS ORDERED: LIDOCAINE HCL 1% 20ML VIAL (Pyxis) INJ ONE (09:18)
[2018-12-07] MEDS: INSULIN GLARGINE UD 100 UNITS/ML SYR SUBCUT SCH ×2 (10:00→21:27)
[2018-12-07] MEDS ORDERED: MIDAZOLAM HCL 2 MG/2 ML VIAL ONE (10:03)
[2018-12-07] MEDS ORDERED: FENTANYL CITRATE/PF 50MCG/ML 2ML VIAL ONE (10:03)
[2018-12-07] MEDS: LEVOFLOXACIN 250MG TABLET PO SCH (11:59)
[2018-12-07] MEDS: TAMSULOSIN HCL 0.4MG SR CAPSULE PO SCH (21:28)
[2018-12-07] MEDS: AMITRIPTYLINE 25MG TABLET PO SCH (21:28)
[2018-12-08] VITALS (9 sets, daily range): BP systolic 100–137; BP diastolic 65–87
[2018-12-08] MEDS: HYDROMORPHONE HCL/PF 2MG/ML CPJ IV PRN (03:17)
[2018-12-08] MEDS: GABAPENTIN 100MG CAPSULE PO SCH ×2 (05:57→14:59)
[2018-12-08 06:27] LABS: BASOPHILS % 0.9 % (0.0-2.0); EOSINOPHILS % 3.3 % (0.0-5.0); HEMATOCRIT. 33.2 % (42.0-52.0); LYMPHOCYTES % 26.5 % (20.0-50.0); MEAN CORPUSCULAR HEMOGLOBIN 27.1 pg (28.0-32.0); MEAN CORPUSCULAR VOLUME 82.1 fL (80.0-94.0); MEAN PLATELET VOLUME 6.9 fl (7.4-10.4); NEUTROPHILS % 56.3 % (40.0-76.0); PLATELET 413 x1000/uL (130-400); RED BLOOD CELL COUNT 4.04 mill/uL (4.7-6.1); RED CELL DISTRIBUTION WIDTH 17.5 % (11.6-14.6)
[2018-12-08] MEDS: BLOOD SUGAR DIAGNOSTIC STRIP TEST SCH ×2 (06:50→11:32)
[2018-12-08 07:17] LABS: CHLORIDE 106 mEq/L (98-107)
[2018-12-08] MEDS: INSULIN LISPRO 100 UNITS/ML SUBCUT SCH ×2 (07:20→11:41)
[2018-12-08] MEDS: ATORVASTATIN CALCIUM 20MG TABLET PO SCH (08:57)
[2018-12-08] MEDS: CLOPIDOGREL 75MG TABLET PO SCH (08:57)
[2018-12-08] MEDS: CARVEDILOL 6.25 MG TABLET PO SCH (08:57)
[2018-12-08] MEDS: ASPIRIN 81MG TABLET PO SCH (08:57)
[2018-12-08] MEDS: DOCUSATE SODIUM 100MG CAPSULE PO SCH (08:57)
[2018-12-08] MEDS: LEVOFLOXACIN 250MG TABLET PO SCH (11:17)
[2018-12-08] MEDS ORDERED: HYDROMORPHONE HCL/PF 2MG/ML CPJ IV PRN (11:30)
[2018-12-08] MEDS: INSULIN GLARGINE UD 100 UNITS/ML SYR SUBCUT SCH (11:40)
== END 2018-12-08 17:18 | DRG 853 ==
LOC: ER → 5WST 03:57 → EDBEDREQTM 04:10 → EDBEDREQSVC 04:10 → EDBEDREQ 04:10 → ENRESERV 07:45 → 3WST 12-07 11:08
PROVIDERS: ADMIT Internal Medicine; ATTEND Internal Medicine
PROC: 0JBQ0ZZ Excision of Right Foot Subcutaneous Tissue and Fascia, Open Approach (ICD-10-PCS; principal; 2018-12-02)
PROC: B4101ZZ Fluoroscopy of Abdominal Aorta using Low Osmolar Contrast (ICD-10-PCS; 2018-12-07)
PROC: B41G1ZZ Fluoroscopy of Left Lower Extremity Arteries using Low Osmolar Contrast (ICD-10-PCS; 2018-12-07)
PROC: B41F1ZZ Fluoroscopy of Right Lower Extremity Arteries using Low Osmolar Contrast (ICD-10-PCS; 2018-12-07)
DX: A41.9 Sepsis, unspecified organism (principal); I50.23 Acute on chronic systolic (congestive) heart failure; N17.9 Acute kidney failure, unspecified; E46 Unspecified protein-calorie malnutrition; I50.22 Chronic systolic (congestive) heart failure; I13.0 Hypertensive heart and chronic kidney disease with heart failure and stage 1 through stage 4 chronic kidney disease, or unspecified chronic kidney disease; E11.52 Type 2 diabetes mellitus with diabetic peripheral angiopathy with gangrene; I70.261 Atherosclerosis of native arteries of extremities with gangrene, right leg; L02.611 Cutaneous abscess of right foot; F17.210 Nicotine dependence, cigarettes, uncomplicated; F12.90 Cannabis use, unspecified, uncomplicated; E11.65 Type 2 diabetes mellitus with hyperglycemia; D72.821 Monocytosis (symptomatic); E11.22 Type 2 diabetes mellitus with diabetic chronic kidney disease; N18.2 Chronic kidney disease, stage 2 (mild); J44.9 Chronic obstructive pulmonary disease, unspecified; I70.211 Atherosclerosis of native arteries of extremities with intermittent claudication, right leg; I25.10 Atherosclerotic heart disease of native coronary artery without angina pectoris; F32.9 Major depressive disorder, single episode, unspecified; L97.519 Non-pressure chronic ulcer of other part of right foot with unspecified severity; F14.10 Cocaine abuse, uncomplicated; E11.42 Type 2 diabetes mellitus with diabetic polyneuropathy; E11.621 Type 2 diabetes mellitus with foot ulcer; E11.649 Type 2 diabetes mellitus with hypoglycemia without coma; I25.5 Ischemic cardiomyopathy; I11.0 Hypertensive heart disease with heart failure; Z86.73 Personal history of transient ischemic attack (TIA), and cerebral infarction without residual deficits; Z89.419 Acquired absence of unspecified great toe; Z93.3 Colostomy status; Z95.5 Presence of coronary angioplasty implant and graft; I25.2 Old myocardial infarction; Z59.0 Homelessness; Z81.8 Family history of other mental and behavioral disorders; Z83.79 Family history of other diseases of the digestive system; Z82.49 Family history of ischemic heart disease and other diseases of the circulatory system; Z82.0 Family history of epilepsy and other diseases of the nervous system; Z83.3 Family history of diabetes mellitus; Z68.25 Body mass index [BMI] 25.0-25.9, adult; Z88.0 Allergy status to penicillin; Z79.899 Other long term (current) drug therapy; Z79.02 Long term (current) use of antithrombotics/antiplatelets; Z79.84 Long term (current) use of oral hypoglycemic drugs; Z89.421 Acquired absence of other right toe(s); Z79.4 Long term (current) use of insulin; Z71.6 Tobacco abuse counseling
CPT/HCPCS: 36246; 36415; 71045; 73630; 73718; 75710; 80048; 80061; 80305; 82962; 83036; 83605; 83735; 83880; 84100; 84145; 84443; 85651; 86140; 87070; 87075; 87077; 87186; 93005; 93970; 96365; 96368; 96372; 96375; 97162; 99291; C1760; C1769; C1893; J0696; J1170; J1580; J1644; J1815; J1940; J1956; J2250; J2270; J2405; J3010; J3370; J3490; J7030; J7050; J7060; Q9967

== ENCOUNTER 2019-01-22 17:22 | Inpatient (IN) | payer MEDICARE, MEDICAID ==
[~2019-01-22] VITALS: Ht 175.3 cm; Wt 90.0 kg
[2019-01-22] MEDS ORDERED: VANCOMYCIN 1 G PREMIX 200 ML IV SCH (20:45)
[2019-01-22 21:12] LABS: CHLORIDE 101 mEq/L (98-107); HEMOGLOBIN. 11.6 g/dL (14.0-18.0); LYMPHOCYTES % 16.6 % (20.0-50.0); MEAN CORPUSCULAR HEMOGLOBIN 26.8 pg (28.0-32.0); MEAN CORPUSCULAR VOLUME 83.3 fL (80.0-94.0); MEAN PLATELET VOLUME 6.8 fl (7.4-10.4); MONOCYTES % 12.3 % (2.0-8.0); NEUTROPHILS % 67.1 % (40.0-76.0); PLATELET 449 x1000/uL (130-400); RED BLOOD CELL COUNT 4.32 mill/uL (4.7-6.1); RED CELL DISTRIBUTION WIDTH 16.3 % (11.6-14.6)
[2019-01-22 21:16] LABS: INR 1.1; PROTHROMBIN TIME 11.2 sec (9.6-11.0)
[2019-01-23] VITALS (7 sets, daily range): BP systolic 107–124; BP diastolic 69–78
[2019-01-23] MEDS ORDERED: FINA5TAB11 PO (00:39)
[2019-01-23] MEDS ORDERED: INSU100I28 SQ (02:07)
[2019-01-23] MEDS ORDERED: DEXTROSE 50% WATER 50ML SYRINGE IV PRN (05:30)
[2019-01-23] MEDS: BLOOD SUGAR DIAGNOSTIC STRIP TEST SCH ×4 (06:10→21:24)
[2019-01-23] MEDS: HYDROCODONE/ACETAMINOPHEN 5/325MG TABLET PO PRN ×4 (08:12→23:41)
[2019-01-23] MEDS: ENOXAPARIN 40MG/0.4ML SYR SUBCUT SCH (08:13)
[2019-01-23] MEDS: INSULIN LISPRO 100 UNITS/ML SUBCUT SCH ×4 (08:15→21:32)
[2019-01-23] MEDS: LEVOFLOXACIN 500MG PREMIX 100 ML IV SCH (09:57)
[2019-01-23] MEDS ORDERED: VANCOMYCIN 1500MG in DEXTROSE 5% WATER 250ML IV SCH (10:00)
[2019-01-23 10:20] LABS: BASOPHILS % 1.1 % (0.0-2.0); EOSINOPHILS % 4.8 % (0.0-5.0); HEMATOCRIT. 29.6 % (42.0-52.0); HEMOGLOBIN. 9.8 g/dL (14.0-18.0); LYMPHOCYTES % 20.1 % (20.0-50.0); MEAN CORPUSCULAR HEMOGLOBIN 27.5 pg (28.0-32.0); MEAN PLATELET VOLUME 6.8 fl (7.4-10.4); PLATELET 391 x1000/uL (130-400); RED BLOOD CELL COUNT 3.57 mill/uL (4.7-6.1); RED CELL DISTRIBUTION WIDTH 15.8 % (11.6-14.6)
[2019-01-23] MEDS: INSULIN GLARGINE UD 100 UNITS/ML SYR SUBCUT SCH ×2 (10:32→21:33)
[2019-01-23 10:33] LABS: CHLORIDE 103 mEq/L (98-107)
[2019-01-23] MEDS: FUROSEMIDE 40MG/4ML VIAL IVP SCH (18:15)
[2019-01-23] MEDS: CARVEDILOL 3.125 MG TABLET PO SCH (21:00)
[2019-01-23] MEDS: VANCOMYCIN 1 G PREMIX 200 ML IV SCH (21:54)
[2019-01-24] VITALS: BP 110/73
[2019-01-24 04:00] VITALS: BP 108/62
[2019-01-24 06:09] LABS: BASOPHILS % 1.2 % (0.0-2.0); EOSINOPHILS % 6.2 % (0.0-5.0); HEMATOCRIT. 32.4 % (42.0-52.0); HEMOGLOBIN. 10.7 g/dL (14.0-18.0); LYMPHOCYTES % 26.1 % (20.0-50.0); MEAN CORPUSCULAR HEMOGLOBIN 27.4 pg (28.0-32.0); MEAN CORPUSCULAR VOLUME 83.1 fL (80.0-94.0); MONOCYTES % 13.9 % (2.0-8.0); NEUTROPHILS % 52.6 % (40.0-76.0); PLATELET 441 x1000/uL (130-400); RED CELL DISTRIBUTION WIDTH 15.9 % (11.6-14.6)
[2019-01-24 06:17] LABS: CHLORIDE 100 mEq/L (98-107)
[2019-01-24] MEDS: BLOOD SUGAR DIAGNOSTIC STRIP TEST SCH ×4 (06:29→21:13)
[2019-01-24] MEDS: INSULIN LISPRO 100 UNITS/ML SUBCUT SCH ×4 (07:50→21:00)
[2019-01-24 08:00] VITALS: BP 122/85
[2019-01-24] MEDS: FUROSEMIDE 40MG/4ML VIAL IVP SCH (09:01)
[2019-01-24] MEDS: ENOXAPARIN 40MG/0.4ML SYR SUBCUT SCH (09:01)
[2019-01-24] MEDS: LEVOFLOXACIN 500MG PREMIX 100 ML IV SCH (09:01)
[2019-01-24] MEDS: HYDROCODONE/ACETAMINOPHEN 5/325MG TABLET PO PRN ×3 (09:02→21:42)
[2019-01-24] MEDS: LOSARTAN POTASSIUM 25 MG TABLET PO SCH (09:02)
[2019-01-24] MEDS: CARVEDILOL 3.125 MG TABLET PO SCH ×2 (09:02→20:44)
[2019-01-24] MEDS: INSULIN GLARGINE UD 100 UNITS/ML SYR SUBCUT SCH ×2 (10:36→21:43)
[2019-01-24] MEDS: VANCOMYCIN 1 G PREMIX 200 ML IV SCH ×2 (10:37→21:41)
[2019-01-24 12:00] VITALS: BP 102/64
[2019-01-24 16:00] VITALS: BP 112/71
[2019-01-24 20:00] VITALS: BP 106/53
[2019-01-25 00:22] VITALS: BP 106/70
[2019-01-25 04:00] VITALS: BP 128/81
[2019-01-25] MEDS: HYDROCODONE/ACETAMINOPHEN 5/325MG TABLET PO PRN (05:42)
[2019-01-25] MEDS: BLOOD SUGAR DIAGNOSTIC STRIP TEST SCH ×4 (06:55→21:41)
[2019-01-25 07:07] LABS: CHLORIDE 101 mEq/L (98-107)
[2019-01-25 07:23] LABS: BASOPHILS % 1.2 % (0.0-2.0); HEMATOCRIT. 30.9 % (42.0-52.0); HEMOGLOBIN. 10.4 g/dL (14.0-18.0); LYMPHOCYTES % 20.7 % (20.0-50.0); MEAN CORPUSCULAR HEMOGLOBIN 27.5 pg (28.0-32.0); MEAN PLATELET VOLUME 6.8 fl (7.4-10.4); NEUTROPHILS % 59.1 % (40.0-76.0); PLATELET 434 x1000/uL (130-400); RED BLOOD CELL COUNT 3.77 mill/uL (4.7-6.1); RED CELL DISTRIBUTION WIDTH 15.7 % (11.6-14.6)
[2019-01-25] MEDS: INSULIN LISPRO 100 UNITS/ML SUBCUT SCH ×4 (07:46→21:00)
[2019-01-25 08:00] VITALS: BP 116/79
[2019-01-25] MEDS: LOSARTAN POTASSIUM 25 MG TABLET PO SCH (09:00)
[2019-01-25] MEDS: CARVEDILOL 3.125 MG TABLET PO SCH (09:11)
[2019-01-25] MEDS: FUROSEMIDE 40MG/4ML VIAL IVP SCH (09:11)
[2019-01-25] MEDS: ENOXAPARIN 40MG/0.4ML SYR SUBCUT SCH (09:12)
[2019-01-25] MEDS: LEVOFLOXACIN 500MG TABLET PO SCH (10:38)
[2019-01-25] MEDS: INSULIN GLARGINE UD 100 UNITS/ML SYR SUBCUT SCH ×2 (10:40→21:51)
[2019-01-25 11:55] VITALS: BP 114/80
[2019-01-25] MEDS ORDERED: MORPHINE SULFATE 2 MG/ML CPJ (NOT FOR IM USE) IV NR (13:45)
[2019-01-25] MEDS ORDERED: DILTIAZEM HCL 5MG/ML 5ML VIAL IV NR (15:15)
[2019-01-25] MEDS ORDERED: DIGOXIN 500MCG/2ML AMP IV SCH (15:30)
[2019-01-25 16:00] VITALS: BP 103/72
[2019-01-25] MEDS ORDERED: POTASSIUM CHLORIDE 20MEQ TABLET SR PO NR (16:00)
[2019-01-25] MEDS: ASPIRIN 81MG TABLET PO SCH (17:39)
[2019-01-25 18:21] LABS: DIGOXIN 1.3 ng/mL (0.9-2.0)
[2019-01-25 20:00] VITALS: BP 95/55
[2019-01-25] MEDS: DILTIAZEM HCL 30MG TABLET PO SCH (21:57)
[2019-01-25 23:01] LABS: *AMPHETAMINES SCREEN URINE NEGATIVE (NEGATIVE); *BARBITURATES SCREEN URINE NEGATIVE (NEGATIVE); *BENZODIAZEPINES SCREEN URINE NEGATIVE (NEGATIVE); *COCAINE SCREEN URINE NEGATIVE (NEGATIVE); METHADONE URINE SCREEN NEGATIVE (NEGATIVE); OPIATES URINE SCREEN PRESUMTIVE POSITIVE (NEGATIVE)
[2019-01-25 23:02] LABS: CANNABINOID URINE SCREEN NEGATIVE (NEGATIVE); PHENCYCLIDINE URINE SCREEN NEGATIVE (NEGATIVE)
[2019-01-26] VITALS: BP 123/70
[2019-01-26] MEDS: HYDROCODONE/ACETAMINOPHEN 5/325MG TABLET PO PRN ×2 (02:26→06:39)
[2019-01-26 04:00] VITALS: BP 109/66
[2019-01-26 06:19] LABS: HEMATOCRIT. 33.2 % (42.0-52.0); MEAN CORPUSCULAR HEMOGLOBIN 27.5 pg (28.0-32.0); MEAN CORPUSCULAR VOLUME 82.7 fL (80.0-94.0); MEAN PLATELET VOLUME 6.9 fl (7.4-10.4); PLATELET 471 x1000/uL (130-400); RED BLOOD CELL COUNT 4.01 mill/uL (4.7-6.1); RED CELL DISTRIBUTION WIDTH 15.7 % (11.6-14.6)
[2019-01-26 06:28] LABS: CHLORIDE 102 mEq/L (98-107)
[2019-01-26 06:35] LABS: LDL CHOLESTEROL 80 mg/dL (5-100)
[2019-01-26 06:38] LABS: HDL CHOLESTEROL 49 mg/dL (40-59)
[2019-01-26] MEDS: DILTIAZEM HCL 30MG TABLET PO SCH (06:39)
[2019-01-26] MEDS: INSULIN LISPRO 100 UNITS/ML SUBCUT SCH ×4 (07:50→22:29)
[2019-01-26] MEDS: BLOOD SUGAR DIAGNOSTIC STRIP TEST SCH ×4 (07:53→22:00)
[2019-01-26 08:00] VITALS: BP 107/68
[2019-01-26] MEDS: LOSARTAN POTASSIUM 25 MG TABLET PO SCH (09:00)
[2019-01-26] MEDS: ASPIRIN 81MG TABLET PO SCH (11:11)
[2019-01-26] MEDS: ENOXAPARIN 40MG/0.4ML SYR SUBCUT SCH (11:11)
[2019-01-26] MEDS: LEVOFLOXACIN 500MG TABLET PO SCH (11:11)
[2019-01-26] MEDS: FUROSEMIDE 20MG TABLET PO SCH ×2 (11:11→22:20)
[2019-01-26] MEDS: INSULIN GLARGINE UD 100 UNITS/ML SYR SUBCUT SCH ×2 (11:15→22:28)
[2019-01-26 11:59] LABS: PLATELET ESTIMATE INCREASED
[2019-01-26 12:00] VITALS: BP 108/55
[2019-01-26] MEDS ORDERED: VANCOMYCIN 1 G PREMIX 200 ML IV SCH (14:00)
[2019-01-26 16:00] VITALS: BP 113/78
[2019-01-26] MEDS: CLOPIDOGREL 75MG TABLET PO SCH (17:55)
[2019-01-26 20:00] VITALS: BP 133/84
[2019-01-26] MEDS: CARVEDILOL 6.25 MG TABLET PO SCH (22:20)
[2019-01-26] MEDS: CEPHALEXIN 250MG CAPSULE PO SCH (22:24)
[2019-01-27] VITALS (7 sets, daily range): BP systolic 93–142; BP diastolic 57–81
[2019-01-27 06:07] LABS: CHLORIDE 102 mEq/L (98-107)
[2019-01-27 06:22] LABS: HEMATOCRIT. 34.2 % (42.0-52.0); HEMOGLOBIN. 11.3 g/dL (14.0-18.0); MEAN CORPUSCULAR HEMOGLOBIN 27.5 pg (28.0-32.0); MEAN CORPUSCULAR VOLUME 82.8 fL (80.0-94.0); MEAN PLATELET VOLUME 6.5 fl (7.4-10.4); PLATELET 479 x1000/uL (130-400); RED BLOOD CELL COUNT 4.13 mill/uL (4.7-6.1); RED CELL DISTRIBUTION WIDTH 15.6 % (11.6-14.6)
[2019-01-27] MEDS: BLOOD SUGAR DIAGNOSTIC STRIP TEST SCH ×4 (07:01→21:00)
[2019-01-27] MEDS: CEPHALEXIN 250MG CAPSULE PO SCH ×3 (07:01→22:39)
[2019-01-27] MEDS: INSULIN LISPRO 100 UNITS/ML SUBCUT SCH ×4 (07:27→22:55)
[2019-01-27] MEDS: LOSARTAN POTASSIUM 25 MG TABLET PO SCH (09:00)
[2019-01-27] MEDS: CLOPIDOGREL 75MG TABLET PO SCH (09:52)
[2019-01-27] MEDS: ASPIRIN 81MG TABLET PO SCH (09:52)
[2019-01-27] MEDS: DOXYCYCLINE HYCLATE 100MG CAPSULE PO SCH ×2 (09:52→17:50)
[2019-01-27] MEDS: FUROSEMIDE 20MG TABLET PO SCH ×2 (09:52→22:39)
[2019-01-27] MEDS: ENOXAPARIN 40MG/0.4ML SYR SUBCUT SCH (09:53)
[2019-01-27] MEDS: CARVEDILOL 6.25 MG TABLET PO SCH ×2 (09:53→22:40)
[2019-01-27] MEDS ORDERED: INSULIN GLARGINE UD 100 UNITS/ML SYR SUBCUT SCH (10:00)
[2019-01-27 10:59] LABS: PLATELET ESTIMATE SLIGHTLY INCREASED
[2019-01-27] MEDS ORDERED: LOSA25TA3 PO (18:02)
[2019-01-27] MEDS ORDERED: DOXY100C2 PO (18:02)
[2019-01-27] MEDS ORDERED: CEPH250C2 PO (18:02)
[2019-01-27] MEDS ORDERED: LANTUSUD SUBCUT ×2 (18:02)
[2019-01-27] MEDS: INSULIN GLARGINE UD 100 UNITS/ML SYR SUBCUT SCH (22:59)
== END 2019-01-27 23:25 | DRG 622 ==
LOC: ER 17:22 → 6WST 21:28 → ENRESERV 21:59
PROVIDERS: ADMIT Internal Medicine; ATTEND Internal Medicine
PROC: 0JBR0ZZ Excision of Left Foot Subcutaneous Tissue and Fascia, Open Approach (ICD-10-PCS; principal; 2019-01-25)
PROC: 0JBQ0ZZ Excision of Right Foot Subcutaneous Tissue and Fascia, Open Approach (ICD-10-PCS; 2019-01-25)
DX: E11.621 Type 2 diabetes mellitus with foot ulcer (principal); I50.23 Acute on chronic systolic (congestive) heart failure; E44.0 Moderate protein-calorie malnutrition; I47.1 Supraventricular tachycardia; I42.0 Dilated cardiomyopathy; L97.519 Non-pressure chronic ulcer of other part of right foot with unspecified severity; L97.529 Non-pressure chronic ulcer of other part of left foot with unspecified severity; I11.0 Hypertensive heart disease with heart failure; D64.9 Anemia, unspecified; E11.40 Type 2 diabetes mellitus with diabetic neuropathy, unspecified; E11.65 Type 2 diabetes mellitus with hyperglycemia; E78.00 Pure hypercholesterolemia, unspecified; E11.51 Type 2 diabetes mellitus with diabetic peripheral angiopathy without gangrene; I25.10 Atherosclerotic heart disease of native coronary artery without angina pectoris; I25.5 Ischemic cardiomyopathy; Z89.411 Acquired absence of right great toe; Z93.3 Colostomy status; Z86.73 Personal history of transient ischemic attack (TIA), and cerebral infarction without residual deficits; Z88.0 Allergy status to penicillin; Z79.899 Other long term (current) drug therapy; I25.2 Old myocardial infarction; Z79.82 Long term (current) use of aspirin; Z79.4 Long term (current) use of insulin; Z68.29 Body mass index [BMI] 29.0-29.9, adult; Z82.49 Family history of ischemic heart disease and other diseases of the circulatory system; Z89.412 Acquired absence of left great toe; Z89.422 Acquired absence of other left toe(s); Z79.02 Long term (current) use of antithrombotics/antiplatelets
CPT/HCPCS: 36415; 71045; 73620; 73660; 80048; 80061; 80162; 80202; 80305; 82962; 83036; 83735; 84443; 84484; 86850; 86900; 93005; 93306; 93970; 96365; 97162; 97535; 99285; J1160; J1650; J1815; J1940; J1956; J2270; J3370; J7060

== ENCOUNTER 2019-03-02 07:51 | Emergency (ER) | payer OTHER, MEDICAID ==
[~2019-03-02] VITALS: Ht 175.3 cm; Wt 100.0 kg
[~2019-03-02 07:51] MED LIST changes: -AMA1 PO; +CEPH250C2 PO; -CHLO10TA9 PO; -DOCU-138 PO; +DOXY100C2 PO; +FINA5TAB11 PO; -INSLIS SUBCUT; -LINA5TAB PO; -POTA10CA42 MT
[2019-03-02] MEDS ORDERED: FUROSEMIDE 40MG/4ML VIAL IV ONE (08:15)
[2019-03-02] MEDS ORDERED: TRAMADOL 50MG TABLET PO ONE (08:15)
[2019-03-02 09:12] LABS: BASOPHILS % 0.8 % (0.0-2.0); CHLORIDE 107 mEq/L (98-107); EOSINOPHILS % 1.4 % (0.0-5.0); HEMATOCRIT. 35.6 % (42.0-52.0); HEMOGLOBIN. 11.8 g/dL (14.0-18.0); LYMPHOCYTES % 15.5 % (20.0-50.0); MEAN CORPUSCULAR VOLUME 84.5 fL (80.0-94.0); MEAN PLATELET VOLUME 7.5 fl (7.4-10.4); MONOCYTES % 11.4 % (2.0-8.0); NEUTROPHILS % 70.9 % (40.0-76.0); PLATELET 317 x1000/uL (130-400); RED BLOOD CELL COUNT 4.22 mill/uL (4.7-6.1); RED CELL DISTRIBUTION WIDTH 16.9 % (11.6-14.6)
[2019-03-02 09:18] LABS: ETHANOL BLOOD < 10 mg/dL
[2019-03-02 10:28] LABS: CANNABINOID URINE SCREEN PRESUMTIVE POSITIVE (NEGATIVE); METHADONE URINE SCREEN NEGATIVE (NEGATIVE); OPIATES URINE SCREEN NEGATIVE (NEGATIVE); PHENCYCLIDINE URINE SCREEN NEGATIVE (NEGATIVE)
[2019-03-02 10:29] LABS: *AMPHETAMINES SCREEN URINE NEGATIVE (NEGATIVE); *BARBITURATES SCREEN URINE NEGATIVE (NEGATIVE); *BENZODIAZEPINES SCREEN URINE NEGATIVE (NEGATIVE); *COCAINE SCREEN URINE PRESUMTIVE POSITIVE (NEGATIVE)
[2019-03-02] MEDS ORDERED: HYDROCODONE/ACETAMINOPHEN 5/325MG TABLET PO ONE (10:45)
[2019-03-02 12:08] VITALS: BP 120/72
== END 2019-03-02 12:09 | disposition home or self-care (01) ==
LOC: ER 07:51
DX: M79.606 Pain in leg, unspecified (principal); I11.0 Hypertensive heart disease with heart failure; I50.9 Heart failure, unspecified; E11.9 Type 2 diabetes mellitus without complications; R06.02 Shortness of breath; F14.10 Cocaine abuse, uncomplicated; Z89.421 Acquired absence of other right toe(s); F12.10 Cannabis abuse, uncomplicated; F17.200 Nicotine dependence, unspecified, uncomplicated; Z88.0 Allergy status to penicillin; Z79.899 Other long term (current) drug therapy; Z79.82 Long term (current) use of aspirin; Z79.4 Long term (current) use of insulin
CPT/HCPCS: 36415; 71045; 80053; 80305; 80320; 83880; 84484; 85025; 93005; 96374; 99284; J1940; G0480

== ENCOUNTER 2019-05-03 16:58 | Emergency (ER) | payer OTHER, MEDICAID ==
[~2019-05-03] VITALS: Ht 172.7 cm; Wt 91.0 kg
[2019-05-03] MEDS ORDERED: SODIUM CHLORIDE 0.9% 1,000 ML IV ONE (20:51)
[2019-05-03 21:14] LABS: BASOPHILS % 1.2 % (0.0-2.0); EOSINOPHILS % 3.1 % (0.0-5.0); HEMATOCRIT. 40.6 % (42.0-52.0); HEMOGLOBIN. 13.3 g/dL (14.0-18.0); LYMPHOCYTES % 20.7 % (20.0-50.0); MEAN CORPUSCULAR HEMOGLOBIN 27.1 pg (28.0-32.0); MEAN CORPUSCULAR VOLUME 82.6 fL (80.0-94.0); MEAN PLATELET VOLUME 7.5 fl (7.4-10.4); MONOCYTES % 9.2 % (2.0-8.0); NEUTROPHILS % 65.8 % (40.0-76.0); PLATELET 368 x1000/uL (130-400); RED BLOOD CELL COUNT 4.92 mill/uL (4.7-6.1)
[2019-05-03 21:20] LABS: CHLORIDE 98 mEq/L (98-107)
[2019-05-03] MEDS ORDERED: KETOROLAC 30MG/ML VIAL IV ONE (21:45)
[2019-05-03 22:44] LABS: CLARITY URINE CLEAR (CLEAR); COLOR URINE YELLOW (YELLOW); KETONES URINE NEGATIVE (NEGATIVE); LEUKOCYTE ESTERASE URINE NEGATIVE (NEGATIVE); NITRITE URINE NEGATIVE (NEGATIVE); OCCULT BLOOD URINE TRACE (NEGATIVE); PH URINE 6.5 (4.5-8.0); PROTEIN URINE NEGATIVE (NEGATIVE); SPECIFIC GRAVITY URINE 1.025 (1.005-1.030); UROBILINOGEN URINE 0.2 E.U./dL (0.2-1.0)
[2019-05-04] MEDS ORDERED: SODIUM CHLORIDE 0.9% 1,000 ML IV ONE (01:00)
[2019-05-04] MEDS ORDERED: INSULIN LISPRO 100 UNITS/ML SUBCUT ONE (01:30)
[2019-05-04 02:45] VITALS: BP 134/89
== END 2019-05-04 02:54 | disposition home or self-care (01) ==
LOC: ER 16:58
DX: M54.9 Dorsalgia, unspecified (principal); E11.65 Type 2 diabetes mellitus with hyperglycemia; I11.0 Hypertensive heart disease with heart failure; I50.9 Heart failure, unspecified; M79.604 Pain in right leg; M79.605 Pain in left leg; F12.10 Cannabis abuse, uncomplicated; R53.1 Weakness; Z88.0 Allergy status to penicillin; Z79.4 Long term (current) use of insulin; Z79.82 Long term (current) use of aspirin; Z79.899 Other long term (current) drug therapy
CPT/HCPCS: 36415; 71045; 80053; 81003; 82962; 83690; 83880; 84484; 85025; 93005; 96361; 96372; 96374; 99284; J1815; J1885; J7030

== ENCOUNTER 2020-10-12 13:04 | Inpatient (IN) | payer MEDICARE, MEDICAID ==
[~2020-10-12] VITALS: Ht 175.3 cm; Wt 88.9 kg
[~2020-10-12 13:04] MED LIST changes: +ASCO100T12 PO; +ATOR-2 PO; -ATOR20TA65 MT; -CEPH250C2 PO; +CLOP-31 PO; -CLOP75TA4 PO; +COR3 PO; -COR6 PO; +DOCU-138 PO; -DOXY100C2 PO; +EMPA10TA PO; +FAMO20TA8 MT; +FERR325T6 PO; +LEVE500T19 PO; -LOSA25TA3 PO; +QUET25TA PO; +SILV50CR31 TP; +SPIR25TA PO; +SUCR1TAB MT
[2020-10-12] MEDS ORDERED: ONDANSETRON HCL 4MG/2ML INJ IV STA (13:24)
[2020-10-12] MEDS ORDERED: SODIUM CHLORIDE 0.9% 1,000 ML IV ONE ×2 (13:30→17:15)
[2020-10-12] MEDS ORDERED: FAMOTIDINE 20MG/2ML VIAL IV ONE (13:30)
[2020-10-12] MEDS ORDERED: SODIUM CHLORIDE 0.9% 1000ML BAG (SEPSIS BOLUS) IV ONE (13:30)
[2020-10-12 14:01] LABS: BASOPHILS % 0.4 % (0.0-2.0); HEMATOCRIT. 41.5 % (42.0-52.0); HEMOGLOBIN. 13.5 g/dL (14.0-18.0); LYMPHOCYTES % 10.9 % (20.0-50.0); MEAN CORPUSCULAR HEMOGLOBIN 25.8 pg (28.0-32.0); MEAN CORPUSCULAR VOLUME 79.1 fL (80.0-94.0); MEAN PLATELET VOLUME 7.4 fl (7.4-10.4); MONOCYTES % 5.8 % (2.0-8.0); NEUTROPHILS % 82.9 % (40.0-76.0); PLATELET 490 x1000/uL (130-400); RED BLOOD CELL COUNT 5.24 mill/uL (4.7-6.1); RED CELL DISTRIBUTION WIDTH 20.3 % (11.6-14.6)
[2020-10-12] MEDS ORDERED: VANCOMYCIN 1 G PREMIX 200 ML IV ONE ×2 (14:15→16:00)
[2020-10-12 14:18] LABS: CHLORIDE 101 mEq/L (98-107)
[2020-10-12 14:22] LABS: ETHANOL BLOOD < 10 mg/dL
[2020-10-12] MEDS ORDERED: LORAZEPAM 2MG/ML CPJ IV ONE (14:45)
[2020-10-12] MEDS ORDERED: ASPIRIN 325MG EC TABLET PO ONE (14:45)
[2020-10-12] MEDS: LEVOFLOXACIN 750MG PREMIX 150 ML IV ONE ×2 (15:36→15:49)
[2020-10-12 16:40] LABS: CLARITY URINE CLEAR (CLEAR); COLOR URINE YELLOW (YELLOW); KETONES URINE TRACE (NEGATIVE); LEUKOCYTE ESTERASE URINE NEGATIVE (NEGATIVE); NITRITE URINE NEGATIVE (NEGATIVE); OCCULT BLOOD URINE 3+ (NEGATIVE); PROTEIN URINE 3+ (NEGATIVE); SPECIFIC GRAVITY URINE 1.022 (1.005-1.030); UROBILINOGEN URINE 0.2 E.U./dL (0.2-1.0)
[2020-10-12 17:01] LABS: *AMPHETAMINES SCREEN URINE PRESUMTIVE POSITIVE (NEGATIVE); *BARBITURATES SCREEN URINE NEGATIVE (NEGATIVE); CANNABINOID URINE SCREEN NEGATIVE (NEGATIVE)
[2020-10-12 17:02] LABS: *BENZODIAZEPINES SCREEN URINE NEGATIVE (NEGATIVE); *COCAINE SCREEN URINE NEGATIVE (NEGATIVE); METHADONE URINE SCREEN NEGATIVE (NEGATIVE); OPIATES URINE SCREEN NEGATIVE (NEGATIVE); PHENCYCLIDINE URINE SCREEN NEGATIVE (NEGATIVE)
[2020-10-12] MEDS ORDERED: DIPHENHYDRAMINE 50MG/ML VIAL IV PRN (17:30)
[2020-10-12] MEDS ORDERED: IPRATROPIUM/ALBUTEROL 0.5-3(2.5)MG/3ML NEB HHN PRN (17:30)
[2020-10-12] MEDS ORDERED: ONDANSETRON HCL 4MG/2ML INJ IV PRN (17:30)
[2020-10-12] MEDS ORDERED: LEVOFLOXACIN 500MG PREMIX 100 ML IV SCH (17:30)
[2020-10-12] MEDS ORDERED: ACETAMINOPHEN 325MG TABLET PO PRN (17:30)
[2020-10-12] MEDS ORDERED: CLONIDINE 0.1MG TABLET PO PRN (17:30)
[2020-10-12] MEDS: SODIUM CHLORIDE 0.9% 1,000 ML IV SCH (19:03)
[2020-10-12] MEDS ORDERED: DEXTROSE 50% WATER 50ML SYRINGE IV PRN (23:00)
[2020-10-12] MEDS: BLOOD SUGAR DIAGNOSTIC STRIP TEST SCH (23:26)
[2020-10-12] MEDS: INSULIN LISPRO (MEDIUM DOSE) 100 UNITS/ML SUBCUT SCH (23:36)
[2020-10-12 23:38] LABS: CREATINE KINASE MB FRACTION 2.2 ng/mL (0.5-3.6)
[2020-10-13] VITALS (69 sets, daily range): BP systolic 87–192; BP diastolic 50–106
[2020-10-13] MEDS: MORPHINE SULFATE 2 MG/ML CPJ (NOT FOR IM USE) IV PRN ×4 (01:38→22:12)
[2020-10-13] MEDS: SODIUM CHLORIDE 0.9% 1,000 ML IV SCH ×2 (04:08→22:12)
[2020-10-13 04:47] LABS: BASOPHILS % 0.6 % (0.0-2.0); EOSINOPHILS % 0.3 % (0.0-5.0); HEMATOCRIT. 43.1 % (42.0-52.0); HEMOGLOBIN. 13.6 g/dL (14.0-18.0); LYMPHOCYTES % 21.8 % (20.0-50.0); MEAN CORPUSCULAR HEMOGLOBIN 25.4 pg (28.0-32.0); MEAN CORPUSCULAR VOLUME 80.4 fL (80.0-94.0); MEAN PLATELET VOLUME 7.4 fl (7.4-10.4); NEUTROPHILS % 68.3 % (40.0-76.0); PLATELET 408 x1000/uL (130-400); RED BLOOD CELL COUNT 5.36 mill/uL (4.7-6.1); RED CELL DISTRIBUTION WIDTH 21.1 % (11.6-14.6)
[2020-10-13 05:13] LABS: CHLORIDE 108 mEq/L (98-107)
[2020-10-13 05:20] LABS: HDL CHOLESTEROL 49 mg/dL (40-59)
[2020-10-13 05:23] LABS: LDL CHOLESTEROL 129 mg/dL (5-100)
[2020-10-13 05:25] LABS: CREATINE KINASE 51 IU/L (39-308)
[2020-10-13 05:27] LABS: CREATINE KINASE MB FRACTION 2.1 ng/mL (0.5-3.6)
[2020-10-13] MEDS: BLOOD SUGAR DIAGNOSTIC STRIP TEST SCH ×4 (06:01→21:12)
[2020-10-13] MEDS: INSULIN LISPRO (MEDIUM DOSE) 100 UNITS/ML SUBCUT SCH ×4 (06:07→21:16)
[2020-10-13] MEDS ORDERED: HYDRALAZINE HCL 10MG TABLET PO PRN (11:00)
[2020-10-13] MEDS ORDERED: VANCOMYCIN 1 G PREMIX 200 ML IV SCH (12:00)
[2020-10-13] MEDS ORDERED: VANCOMYCIN 1250MG in DEXTROSE 5% WATER 250ML IV SCH (15:00)
[2020-10-13] MEDS: INSULIN GLARGINE UD 100 UNITS/ML SYR SUBCUT SCH (22:40)
[2020-10-14] VITALS (12 sets, daily range): BP systolic 105–143; BP diastolic 57–92
[2020-10-14] MEDS: MORPHINE SULFATE 2 MG/ML CPJ (NOT FOR IM USE) IV PRN ×3 (02:17→12:49)
[2020-10-14] MEDS: BLOOD SUGAR DIAGNOSTIC STRIP TEST SCH ×4 (07:44→21:00)
[2020-10-14 07:56] LABS: BASOPHILS % 0.8 % (0.0-2.0); EOSINOPHILS % 3.6 % (0.0-5.0); HEMATOCRIT. 34.1 % (42.0-52.0); HEMOGLOBIN. 11.1 g/dL (14.0-18.0); LYMPHOCYTES % 36.4 % (20.0-50.0); MEAN CORPUSCULAR HEMOGLOBIN 25.7 pg (28.0-32.0); MEAN CORPUSCULAR VOLUME 79.2 fL (80.0-94.0); MEAN PLATELET VOLUME 7.4 fl (7.4-10.4); MONOCYTES % 9.7 % (2.0-8.0); NEUTROPHILS % 49.5 % (40.0-76.0); PLATELET 377 x1000/uL (130-400); RED CELL DISTRIBUTION WIDTH 20.7 % (11.6-14.6)
[2020-10-14] MEDS: INSULIN LISPRO (MEDIUM DOSE) 100 UNITS/ML SUBCUT SCH ×4 (07:56→21:00)
[2020-10-14 08:20] LABS: PHOSPHORUS 2.1 mg/dL (2.5-4.9)
[2020-10-14] MEDS: SODIUM CHLORIDE 0.9% 1,000 ML IV SCH (12:39)
[2020-10-14] MEDS: VANCOMYCIN 1250MG in DEXTROSE 5% WATER 250ML IV SCH (12:49)
[2020-10-14] MEDS: PANTOPRAZOLE SODIUM 40 MG/VIAL IV SCH (13:50)
[2020-10-14] MEDS: ENOXAPARIN 40MG/0.4ML SYR SUBCUT SCH (13:51)
[2020-10-14] MEDS ORDERED: LEVOFLOXACIN 750MG PREMIX 150 ML IV SCH (14:00)
[2020-10-14] MEDS ORDERED: POTASSIUM PHOS,M-BASIC-D-BASIC 30 MMOL in SODIUM CHLORIDE 0.9% 500 ML IV ONE (14:00)
[2020-10-14] MEDS: HYDROCODONE/ACETAMINOPHEN 5/325MG TABLET PO PRN ×2 (14:58→22:25)
[2020-10-14] MEDS: ASPIRIN 81MG EC TABLET PO SCH (18:22)
[2020-10-14] MEDS: ATORVASTATIN CALCIUM 40MG TABLET PO SCH (20:08)
[2020-10-14] MEDS: INSULIN GLARGINE UD 100 UNITS/ML SYR SUBCUT SCH (22:15)
[2020-10-15] VITALS (12 sets, daily range): BP systolic 113–159; BP diastolic 67–91
[2020-10-15] MEDS: SODIUM CHLORIDE 0.9% 1,000 ML IV SCH (01:01)
[2020-10-15] MEDS: MORPHINE SULFATE 2 MG/ML CPJ (NOT FOR IM USE) IV PRN ×2 (01:35→13:50)
[2020-10-15 05:31] LABS: BASOPHILS % 0.4 % (0.0-2.0); EOSINOPHILS % 4.3 % (0.0-5.0); HEMATOCRIT. 31.8 % (42.0-52.0); HEMOGLOBIN. 10.3 g/dL (14.0-18.0); LYMPHOCYTES % 36.3 % (20.0-50.0); MEAN CORPUSCULAR VOLUME 80.2 fL (80.0-94.0); MEAN PLATELET VOLUME 7.4 fl (7.4-10.4); MONOCYTES % 9.9 % (2.0-8.0); NEUTROPHILS % 49.1 % (40.0-76.0); PLATELET 331 x1000/uL (130-400); RED BLOOD CELL COUNT 3.96 mill/uL (4.7-6.1); RED CELL DISTRIBUTION WIDTH 20.5 % (11.6-14.6)
[2020-10-15 05:36] LABS: CHLORIDE 110 mEq/L (98-107)
[2020-10-15 05:46] LABS: PHOSPHORUS 3.3 mg/dL (2.5-4.9)
[2020-10-15 05:50] LABS: VANCOMYCIN TROUGH 14.9 ug/mL (5.0-10.0)
[2020-10-15] MEDS: HYDROCODONE/ACETAMINOPHEN 5/325MG TABLET PO PRN ×2 (06:16→21:36)
[2020-10-15] MEDS: VANCOMYCIN 1250MG in DEXTROSE 5% WATER 250ML IV SCH (06:16)
[2020-10-15] MEDS ORDERED: HYDROCODONE/ACETAMINOPHEN 5/325MG TABLET ONE (06:20)
[2020-10-15] MEDS: BLOOD SUGAR DIAGNOSTIC STRIP TEST SCH ×4 (07:46→21:28)
[2020-10-15] MEDS: PANTOPRAZOLE SODIUM 40 MG/VIAL IV SCH (08:58)
[2020-10-15] MEDS: INSULIN LISPRO (MEDIUM DOSE) 100 UNITS/ML SUBCUT SCH ×5 (08:58→21:00)
[2020-10-15] MEDS: ASPIRIN 81MG EC TABLET PO SCH (08:58)
[2020-10-15] MEDS: ENOXAPARIN 40MG/0.4ML SYR SUBCUT SCH (13:50)
[2020-10-15] MEDS ORDERED: LEVOFLOXACIN 500MG TABLET PO SCH (16:00)
[2020-10-15] MEDS: FUROSEMIDE 20MG/2ML VIAL IVP SCH (16:12)
[2020-10-15] MEDS: LOSARTAN POTASSIUM 25 MG TABLET PO SCH (16:13)
[2020-10-15] MEDS: CLOPIDOGREL 75MG TABLET PO SCH (16:13)
[2020-10-15] MEDS: ATORVASTATIN CALCIUM 40MG TABLET PO SCH (21:29)
[2020-10-15] MEDS: CARVEDILOL 3.125 MG TABLET PO SCH (21:29)
[2020-10-15] MEDS: INSULIN GLARGINE UD 100 UNITS/ML SYR SUBCUT SCH (21:38)
[2020-10-16] VITALS (7 sets, daily range): BP systolic 117–149; BP diastolic 65–97
[2020-10-16] MEDS ORDERED: VANCOMYCIN 1 G PREMIX 200 ML IV SCH
[2020-10-16] MEDS: MORPHINE SULFATE 2 MG/ML CPJ (NOT FOR IM USE) IV PRN (03:58)
[2020-10-16 05:23] LABS: CHLORIDE 109 mEq/L (98-107)
[2020-10-16 05:30] LABS: PHOSPHORUS 2.1 mg/dL (2.5-4.9)
[2020-10-16 06:04] LABS: BASOPHILS % 0.5 % (0.0-2.0); EOSINOPHILS % 6.3 % (0.0-5.0); HEMATOCRIT. 36.2 % (42.0-52.0); HEMOGLOBIN. 11.4 g/dL (14.0-18.0); LYMPHOCYTES % 35.9 % (20.0-50.0); MEAN CORPUSCULAR HEMOGLOBIN 25.3 pg (28.0-32.0); MEAN CORPUSCULAR VOLUME 80.1 fL (80.0-94.0); MEAN PLATELET VOLUME 7.5 fl (7.4-10.4); MONOCYTES % 10.1 % (2.0-8.0); NEUTROPHILS % 47.2 % (40.0-76.0); PLATELET 384 x1000/uL (130-400); RED BLOOD CELL COUNT 4.52 mill/uL (4.7-6.1); RED CELL DISTRIBUTION WIDTH 20.5 % (11.6-14.6)
[2020-10-16] MEDS: BLOOD SUGAR DIAGNOSTIC STRIP TEST SCH ×2 (07:30→11:38)
[2020-10-16] MEDS: INSULIN LISPRO (MEDIUM DOSE) 100 UNITS/ML SUBCUT SCH ×2 (08:00→12:48)
[2020-10-16] MEDS: FUROSEMIDE 20MG/2ML VIAL IVP SCH (08:51)
[2020-10-16] MEDS: ASPIRIN 81MG EC TABLET PO SCH (08:51)
[2020-10-16] MEDS: CLOPIDOGREL 75MG TABLET PO SCH (08:51)
[2020-10-16] MEDS: LOSARTAN POTASSIUM 25 MG TABLET PO SCH (08:51)
[2020-10-16] MEDS: CARVEDILOL 3.125 MG TABLET PO SCH (08:51)
[2020-10-16] MEDS ORDERED: FAMOTIDINE 20MG TABLET PO SCH (09:00)
[2020-10-16] MEDS ORDERED: POTASSIUM PHOS,M-BASIC-D-BASIC 15 MMOL in DEXT 5% WATER 245 ML IV SCH (11:00)
[2020-10-16] MEDS: ENOXAPARIN 40MG/0.4ML SYR SUBCUT SCH (12:45)
[2020-10-16] MEDS ORDERED: LOSA25TA3 PO (13:44)
== END 2020-10-16 18:01 | disposition home or self-care (01) | DRG 871 ==
LOC: ER 13:27 → ENRESERV 21:23 → CANRESERV 21:23 → EDBEDREQSVC 23:46 → EDBEDREQTM 23:46 → ENRESERV 10-13 00:17 → MICUNO 10-13 00:50 → 5EST 10-13 21:40
PROVIDERS: ADMIT Internal Medicine; ATTEND Internal Medicine
DX: A41.9 Sepsis, unspecified organism (principal); E43 Unspecified severe protein-calorie malnutrition; I13.0 Hypertensive heart and chronic kidney disease with heart failure and stage 1 through stage 4 chronic kidney disease, or unspecified chronic kidney disease; I42.0 Dilated cardiomyopathy; K57.92 Diverticulitis of intestine, part unspecified, without perforation or abscess without bleeding; N17.9 Acute kidney failure, unspecified; I50.20 Unspecified systolic (congestive) heart failure; E11.22 Type 2 diabetes mellitus with diabetic chronic kidney disease; E11.51 Type 2 diabetes mellitus with diabetic peripheral angiopathy without gangrene; F15.129 Other stimulant abuse with intoxication, unspecified; F17.200 Nicotine dependence, unspecified, uncomplicated; J44.9 Chronic obstructive pulmonary disease, unspecified; N18.30 Chronic kidney disease, stage 3 unspecified; Z79.4 Long term (current) use of insulin; Z82.49 Family history of ischemic heart disease and other diseases of the circulatory system; Z86.73 Personal history of transient ischemic attack (TIA), and cerebral infarction without residual deficits; Z93.3 Colostomy status; Z95.5 Presence of coronary angioplasty implant and graft; I25.2 Old myocardial infarction; Z88.8 Allergy status to other drugs, medicaments and biological substances; Z89.421 Acquired absence of other right toe(s); E86.0 Dehydration; R00.0 Tachycardia, unspecified; N30.90 Cystitis, unspecified without hematuria
CPT/HCPCS: 36415; 71045; 74176; 78582; 80048; 80053; 80061; 80202; 80305; 80320; 81003; 82270; 82550; 82553; 82962; 83605; 83735; 83880; 84100; 84145; 84443; 84484; 85025; 85379; 93005; 93306; 93970; 99291; A9558; C9113; J1650; J1815; J1940; J1956; J2060; J2270; J2405; J3370; J3490; J7030; J7040; J7060; G0480